=== PATIENT | male | born 1960 | race Caucasian/White ===

== ENCOUNTER 2023-02-14 09:12 | Outpatient (CLI) | payer OTHER, SELFPAY ==
[2023-02-14 18:37] LABS: Hematocrit 39.2 % (42.0-52.0); Mean Corpuscular HGB Conc 30.6 g/dl (32-36); Mean Corpuscular Hemoglobin 28.4 pg (26-34); Mean Corpuscular Volume 92.9 fl (80-100); Mean Platelet Volume 11.3 fl (7.4-10.4); Platelet Count Result 297 k/mm3 (150-375); Red Blood Count 4.22 M/mm3 (4.6-6.20); Red Cell Distribution Width 13.2 % (11.5-14.5); White Blood Count 6.2 K/mm3 (4.5-10.0)
== END 2023-02-14 09:13 | disposition home or self-care (01) ==
LOC: ANHBWCLAB 09:16
PROVIDERS: PCP Family Medicine; Visit Provider Family Medicine
DX: D64.9 Anemia, unspecified (principal); R73.03 Prediabetes; Z12.11 Encounter for screening for malignant neoplasm of colon
CPT/HCPCS: 36415; 85027

== ENCOUNTER 2023-02-16 14:47 | Outpatient (CLI) | payer OTHER, SELFPAY ==
[2023-02-16 19:19] LABS: IFOB Positive Control Positive; Immunochemical Fecal Occult Bl Negative (N)
== END 2023-02-16 14:48 | disposition home or self-care (01) ==
PROVIDERS: PCP Family Medicine; Visit Provider Family Medicine
DX: D64.9 Anemia, unspecified (principal); R73.03 Prediabetes; Z12.11 Encounter for screening for malignant neoplasm of colon
CPT/HCPCS: 82274

== ENCOUNTER 2024-06-21 14:58 | Outpatient (CLI) | payer OTHER, SELFPAY ==
[2024-06-21 21:34] LABS: Hemoglobin A1C 6.5 % (<5.7)
== END 2024-06-21 14:59 | disposition home or self-care (01) ==
LOC: ANHBWCLAB 15:00
PROVIDERS: PCP Nurse Practitioner Adult Health; Visit Provider Nurse Practitioner Adult Health
DX: R73.03 Prediabetes (principal)
CPT/HCPCS: 36415; 83036

== ENCOUNTER 2024-06-25 15:49 | Outpatient (CLI) | payer OTHER, SELFPAY ==
[2024-06-25 23:31] LABS: Prostate Specific Antigen 0.8 ng/mL (< OR = 4.0)
[2024-06-26 07:08] LABS: Iron 77 ug/dL (49-181)
[2024-06-26 07:18] LABS: Percent Iron Saturation 25 % (20-50)
== END 2024-06-25 15:50 | disposition home or self-care (01) ==
LOC: ANHBWCLAB 15:50
PROVIDERS: PCP Nurse Practitioner Adult Health; Visit Provider Nurse Practitioner Adult Health
DX: D64.9 Anemia, unspecified (principal); Z12.5 Encounter for screening for malignant neoplasm of prostate
CPT/HCPCS: 36415; 82728; 83540; 83550; 84153; G0103

== ENCOUNTER 2024-12-25 15:43 | Outpatient (CLI) | payer OTHER, SELFPAY ==
--- NOTE | ~2024-12-25 | XR_ITS ---
EXAM: XR knee LT 3V DATE: 12/25/2024 16:07 HISTORY: M25.562 - Pain in left knee . COMPARISON: None available. FINDINGS: Normal mineralization. No acute fracture or dislocation. Partially visualized intramedulla ry tete with distal interlocking screws. Status post total knee arthroplasty, hardware in good positio n. 4 mm perihardware lucency adjacent to the lateral condylar portion of the femoral component. Uncom plicated appearing tibial component. Moderate knee joint effusion. IMPRESSION: Perihardware lucency at the femoral component of the total knee arthroplasty, may represe nt loosening or infection. Reviewed, dictated and finalized at location K. IMPRESSION: Perihardware lucency at the femoral component of the total knee art hroplasty, may represent loosening or infection.
--- OUTSIDE RECORDS SUMMARY | 2024-12-25 15:47 | XMS_ITS | Clinical Summary ---
Author Organization [facility] Address [address] [place] [address] Care Team Providers Care Insurance Verify Rep Name Role Phone Scotty Gilliam MD Primary Care Provider [phone] [phone] Allergies No known active allergies Medications lisinopriL (PRINIVIL,ZESTRI L) 20 mg tablet Take 1 tablet (20 mg total) by mouth every morning Active tamsulosin (FLOMAX) 0.4 mg extended release capsule Take 2 capsules (0.8 mg total) by mouth nightly Active hydroCHLOROthiaz alex (MICROZIDE) 12.5 mg capsule Take 1 capsule (12.5 mg total) by mouth every morning Active cyanocobalamin, vitamin B-12, 5,000 mcg tablet, sublingual Place 5,000 mcg under the tongue every morning Active cholecalciferol 25 mcg (1,000 unit) tablet Take 1 tablet (1,000 Units total) by mouth 2 (two) times a week Active aspirin 81 mg enteric coated tablet Take 1 tablet (81 mg total) by mouth 2 (two) times a day for 14 days For blood clot prevention. Take with food. 28 tablet 3 Active fluticasone propionate (FLONASE) 50 mcg/actuation nasal sprayIndications :Allergic rhinitis, unspecified seasonality, unspecified trigger Administer 2 sprays into each nostril daily 3 each 4 Active meclizine (ANTIVERT) 12.5 mg tabletIndication s:Dizziness Take 1 tablet (12.5 mg total) by mouth 3 (three) times a day as needed for dizziness 90 tablet 4 Active triamcinolone (KENALOG) 0.1 % creamIndications :Insect bite of left thigh, initial encounter Apply topically 3 (three) times a day for 10 days 80 g 4 Active Active Problems Problem Noted Date Diagnosed Date Painful orthopaedic hardware 05/05/2023 Chronic nonallergic rhinitis 07/05/2022 COVID 03/17/2022 Closed fracture of femur 03/17/2022 Overview (03/17/2022): Added automatically from request for surgery [id number] Acute pain due to trauma 03/17/2022 Class 2 severe obesity due t o excess calories with serious comorbidity and body mass index (BMI) of 36.0 to 36.9 in adult 03/26/2021 Primary osteoarthritis of left knee 01/07/2021 Assessment & Plan (04/21/2021 4:15 PM CDT): Stable, not well controlled Patient scheduled for surgery in April Will conclude pre-surgical evaluation today Benign prostatic hyperplasia with urinary freque ncy 07/13/2019 Assessment & Plan (04/21/2021 4:16 PM CDT): Stable, well controlled Symptoms are controlled with tamsulosin 0.4 mg Continue current dose HTN (hypertension) 06/06/2019 Assessment & Plan (04/21/2021 4:16 PM CDT): Stable, well controlled; blood pressure at target today Continue senna oral 20 mg daily 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 [address] [place] [phone] Osmel Ram MD from Last 3 Months Immunizations Immunization Administration Dates Next Due Tdap 11/12/2013 ZOSTER Recombinant 10/04/2019,08/03/2019 Surgical History Surgery Date Site/Laterality Comments TOTAL KNEE ARTHROPLASTY 04/22/2021 Left FEMUR LUIS NAIL INSERTION 03/18/2022 Left Medical History Medical History Date Comments Hypertension Torn meniscus 04/2016 Family History Medical History Relation Name Comments Diabetes Father Diabetes mellit us; Eye Disease Father Heart disease Father Hypertension Father Hypertension; Other Father Alive and well; Stroke Father Stroke; Other Mother Alive and well; Thyroid disease Mother Diabetes Sister Hypertension Sister Thyroid disease Sister Anesthesia problems Neg Hx Relation Name Status Comments Father Alive Mother Alive Sister Alive Social History Tobacco Use Types Packs/Day Years Used Date Smoking Tobacco: Never Smokeless Tobacco: Never Tobacco Cessation:Counseling Given: Not Answered Alcohol Use Standard Drinks/Week Comments No 0 (1 standard drink = 0.6 oz pur e alcohol) AUDIT-C Answer Date Recorded Frequency of Alcohol Consumption Not on file 05/06/2023 Q2: How many drinks containi ng alcohol do you have on a typical day when you are drinking? Patient does not drink Frequency of Binge Drinking Not on file 04/09 PHQ-2 Answer Date Recorded PHQ-2 Total Score (If total score is 3 or more points, staff should administer the PHQ-9) 0 03/26/2021 Personal Safety Answer Date Recorded Have you ever been in or are you currently in a harmful physical or emotional relationship or is someone making you feel afraid or unsafe? 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 Gender Identity Not on file Sexual Orientation Not on file Obstetrics History Last Filed Vital Signs Vital Sign Reading Time Taken Comments Blood Pressure 136/64 04/26/2024 6:14 PM CDT Pulse 82 04/26/2024 6:14 PM CDT Temperature 36.6 C (97.8 F) 04/26/2024 6:14 PM CDT Respiratory Rate 18 04/26/2024 6:14 PM CDT Oxygen Saturation 97% 04/26/2024 6:14 PM CDT Inhaled Oxygen Concentration - - Weight 117.9 kg (260 lb) 04/26/2024 6:14 PM CDT Height 177.8 cm (5' 10 ) 04/26/2024 6:14 PM CDT Body Mass Index 37.31 04/26/2024 6:14 PM CDT Plan of Treatment Health Maintenance Due Date Last Done Comments Hepatitis C Screening 1962 Prostate Cancer Screening-PSA 1962 Hepatitis B Screening 1980 Regular Well Visit/Exam 18-64 1980 Depression Screening 03/26/2022 03/26/2021 Colon Cancer Screening-Colonoscopy 01/13/2023 01/14/2016 DTaP/Tdap/Td Vaccine (2 - Td or Tdap) 11/13/2023 11/12/2013 Covid-19 Vaccine (2 - season) 2024 11/13/2020 Influenza Vaccine (Season Ended) 2025 Colon Cancer Screening-CT Colonography Discontinued 01/14/2016 Colon Cancer Screening-DNA Stool Discontinued 01/14/2016 Colon Cancer Screening-FIT Discontinued 01/14/2016 Colon Cancer Screening-Sigmoidoscopy Discontinued 01/14/2016 Zoster Vaccine Completed 10/04/2019, 08/03/2019 Pneumococcal vaccine <65 Aged Out No longer eligible based on patient's age to complete this topic Medical Devices Implanted Type Area Property Administrator Device Identifier Shelf Expiration Date Model / Serial / Lot Depuy Orthopa[employer] Inc [id number] Attune Cruciate Retain Cementless Knee Left 7 Component Femoral - [id number] Implanted:Qty: 1 on 04/22/2021 by Osmel Ram MD at [facility] Left: Knee [employer]uy [employer] 08/07/2030 [id number] / / [id number] Depuy [employer] [id number] Attune Cementless Rotate Platform Knee 8 Baseplate Tibial - [id number] Implanted:Qty: 1 on 04/22/2021 by Osmel Ram MD at [facility] Left: Knee [employer] 08/07/2030 [id number] / / [id number] Dep[employer] [id number] Attune 10mm Cruciate Retaining Rotate Platform Knee 7 Insert - [id number] Implanted:Qty: 1 on 04/22/2021 by Osmel Ram MD at [facility] Left: Knee [employer] 02/04/2025 [id number] / / [id number] Synthes Screw Locking Threaded 5.0x90mm 04.045.090s - [id number] Implanted:Qty: 1 on 03/18/2022 by Emmanuelle Ba MD at [facility] Left: Femur Synthes I 04/07/2031 04.045.090S / / [id number] Synthes Nail Retrograde Fem 10mm 400mm 5 Deg Bend Titanium Sterile 04.233.040s - [id number] Implanted:Qty: 1 on 03/18/2022 by Emmanuelle Ba MD at [facility] Left: Femur Synthes I 10/05/2025 04.233.040S / / [id number] Screw Locking Im Nail 5mm 84mm - [id number] Implanted:Qty: 1 on 03/18/2022 by Emmanuelle Ba MD at [facility] Left: Femur Synthes I 04.045.084 / / Screw Locking Im Nail 5mm 36mm - [id number] Implanted:Qty: 2 on 03/18/2022 by Emmanuelle Ba MD at [facility] Left: Femur Synthes I 04.045.036 / / Explanted Type Area Property Administrator Device Identifier Shelf Expiration Date Model / Serial / Lot Synthes Screw Locking Im Nail 5mm 80mm 04.045.080 - [id number] Explanted:Qty: 1 on 03/18/2022 by Emmanuelle Ba MD at [facility] Left: Femur Synthes I 04.045.0 80 / / Synthes Screw Locking Im Nail 5mm 88mm 04.045.088 - [id number] Implanted:Qty: 1 on 03/18/2022 by Emmanuelle Ba MD at [facility] Explanted:Qty: 1 on 05/18/2023 by Arsalan Machado MD Left: Femur Synthes I 04.045.088 / / Synthes Screw Locking Im Nail 5mm 68mm 04.045.068 - [id number] Implanted:Qty: 1 on 03/18/2022 by Emmanuelle Ba MD at [facility] Explanted:Qty: 1 on 05/18/2023 by Arsalan Machado MD Left: Femur Synthes I 04.045.068 / / Procedures Procedure Name Priority Date/Time Associated Diagnosis Comments COLONOSCOPY Routine 01/14/2016 from Last 3 Months or Most Recently Relevant to Health Maintenance Results * Colonoscopy (01/14/2016) Anatomical Region Laterality Modality Other us Historical Provider ENDOSCOPY PROCEDURES Marycruz l Result from Last 3 Months or Most Recently Relevant to Health Maintenance Insurance [facility] [employer] [place] [facility] [employer] [employer] WORK[employer] COMPENSATION GENERIC WORKERS COMPENSATION GENERIC WORKERS COMPENSATION GENERIC WORKERS COMPENSATION GENERIC [employer] WORKERS COMPENSATION GENERIC WORKERS COMPENSATION GENERIC Advance Directives For more information, please contact: [phone] * Full Code (Latest Code Status on File) Date Activated Date Inactivated Comments 03/17/2022 7:38 PM 03/22/2022 8:13 PM Care Teams Insurance Verify Rep Relationship Specialty Start Date End Date Scotty Gilliam MD PCP - General Family Practice 10/23/23
--- OUTSIDE RECORDS SUMMARY | 2024-12-25 15:47 | XMS_ITS | Referral Summary ---
Author Organization [facility] [place] [facility] Address [address] [place] [address] Care Team Providers Care Principal Cloud Architect Name Role Phone Scotty Gilliam MD Primary Care Provider [phone] [phone] Encounters Date Type Department Care Team Description 12/03/2024 Telephone [facility] Medical Group Orthopedics and Sports Medicine [address] [place] [phone] Osmel Ram MD from Last 3 Months Allergies No known active allergies Medications lisinopriL [...] (03/17/2022): Added automatically from request for surgery [id number] Acute pain due to trauma 03/17/2022 Class [...] 12/22/2013 Overview (11/11/2016): BENIGN NEOPLASM LG BOWEL Immunizations Immunization Administration Dates Next Due Tdap 11/12/2013 ZOSTER Recombinant 10/04/2019,08/03/2019 Social History Tobacco Use Types Packs/Day Years [...] on file 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 Gender Identity Not on file Sexual Orientation Not on file Last Filed Vital Signs Vital Sign Reading [...] 04/26/2024 6:14 PM CDT Plan of Treatment Not on file Medical Devices Implanted Type Area Supervisor Payroll Device Identifier Shelf Expiration Date Model / Serial / Lot Depuy [employer] [id number] Attune Cruciate Retain Cementless Knee Left 7 Component Femoral - [id number] Implanted:Qty: 1 on 04/22/2021 by Osmel Ram MD at [facility] Left: Knee [employer] 08/07/2030 [id number] / / [id number] [employer] [id number] Attune Cementless Rotate Platform Knee 8 Baseplate Tibial - [id number] Implanted:Qty: 1 on 04/22/2021 by Osmel Ram MD at [facility] Left: Knee [employer] 08/07/2030 [id number] / / [id number] Dep[employer] [id number] Attune 10mm Cruciate Retaining Rotate Platform Knee 7 Insert - [id number] Implanted:Qty: 1 on 04/22/2021 by Osmel Ram MD at [facility] Left: Knee [employer] 02/04/2025 [id number] / / [id number] Synthes Screw Locking Threaded 5.0x90mm 04.045.090s - [id number] Implanted:Qty: 1 on 03/18/2022 by Emmanuelle Ba MD at [facility] Left: Femur Synthes I 04/07/2031 04.045.090S / / [id number] Synthes Nail Retrograde Fem 10mm 400mm 5 Deg Bend Titanium Sterile 04.233.040s - [id number] Implanted:Qty: 1 on 03/18/2022 by Emmanuelle Ba MD at [facility] Left: Femur Synthes I 10/05/2025 04.233.040S / / [id number] Screw Locking Im Nail 5mm 84mm - [id number] Implanted:Qty: 1 on 03/18/2022 by Emmanuelle Ba MD at [facility] Left: Femur Synthes I 04.045.084 / / Screw Locking Im Nail 5mm 36mm - [id number] Implanted:Qty: 2 on 03/18/2022 by Emmanuelle Ba MD at [facility] Left: Femur Synthes I 04.045.036 / / Explanted Type Area Supervisor Payroll Device Identifier Shelf Expiration Date Model / Serial / Lot Synthes Screw Locking Im Nail 5mm 80mm 04.045.080 - [id number] Explanted:Qty: 1 on 03/18/2022 by Emmanuelle Ba MD at [facility] Left: Femur Synthes I 04.045.0 80 / / Synthes Screw Locking Im Nail 5mm 88mm 04.045.088 - [id number] Implanted:Qty: 1 on 03/18/2022 by Emmanuelle Ba MD at [facility] Explanted:Qty: 1 on 05/18/2023 by Arsalan Machado MD Left: Femur Synthes I / / Synthes Screw Locking Im Nail 5mm 68mm - [id number] Implanted:Qty: 1 on 03/18/2022 by Emmanuelle Ba MD at [facility] Explanted:Qty: 1 on 05/18/2023 by Arsalan Machado MD Left: Femur Synthes I / / Procedures Procedure Name Priority Date/Time Associated Diagnosis Comments COLONOSCOPY Routine 01/14/2016 from Last 3 Months or Most Recently Relevant to Health Maintenance Results * Colonoscopy (01/14/2016) Anatomical Region Laterality Modality Other us Historical Provider ENDOSCOPY PROCEDURES Marycruz l Result from Last 3 Months or Most Recently Relevant to Health Maintenance Insurance [employer] WORKERS COMPENSATION GENERIC WORKERS COMPENSATION GENERIC WORKERS COMPENSATION GENERIC WORKERS COMPENSATION GENERIC [employer] WORKERS COMPENSATION [facility] WORKERS COMPENSATION GENERIC Advance Directives For more information, please contact: [phone] * Full Code (Latest Code Status on File) Date Activated Date Inactivated Comments 03/17/2022 7:38 PM 03/22/2022 8:13 PM Care Teams Principal Cloud Architect Relationship Specialty Start Date End Date Scotty Gilliam MD PCP - General Family Practice 10/23/23
--- OUTSIDE RECORDS SUMMARY | 2024-12-25 15:47 | XMS_ITS | Clinical Summary ---
Author Organization [facility] [employer] [place] Address [address] [place] [address] Care Team Providers Care Laboratory Apparatus Glass Grinder Name Role Phone Scotty Gilliam MD Primary Care Provider [phone] [phone] Allergies No known active allergies Medications tamsulosin (FLOMAX) 0.4 mg capsule Take 1 Capsule (0.4 mg) by mouth daily. 90 Capsule 3 2 Active acetaminophen (TYLENOL) 500 mg Capsule Take 1,000 mg by mouth. 2 Active cholecalciferol , vitamin D3, 1,000 unit Take 1,000 Units by mouth. Active cyanocobalamin (VITAMIN B-12) 5,000 mcg Tablet, Sublingual Place 5,000 mcg under tongue. Active traMADoL (ULTRAM) 50 mg tablet Take 50 mg by mouth every 6 hours as needed. 4 Active meclizine (ANTIVERT) 12.5 mg tablet Take 12.5 mg by mouth 3 times daily as needed for Dizziness. 4 Active montelukast (SINGULAIR) 10 mg tablet Take 10 mg by mouth daily at bedtime. Active aspirin (ECOTRIN EC) 81 mg Tablet, Delayed Release (E.C.)Indicatio ns:TIA (transient ischemic attack) Take 1 Tablet (81 mg) by mouth daily. 4 Active fexofenadine (BREANNE) 180 mg tabletIndicatio ns:Acute cough Take 1 Tablet (180 mg) by mouth daily. For allergies 90 Tablet 4 Active amoxicillin-cla vulanate (AUGMENTIN) 875-125 mg tabletIndicatio ns:Acute recurrent maxillary sinusitis Take 1 Tablet by mouth every 12 hours. 20 Tablet 4 Active doxycycline hyclate (VIBRAMYCIN) 100 mg capsuleIndicati ons:Acute recurrent sinusitis, unspecified location Take 1 Capsule (100 mg) by mouth 2 times daily. 20 Capsule 4 Active fluticasone propionate (FLONASE) 50 mcg/spray Mccamey, Suspension nasal inhalerIndicati ons:Acute non-recurrent maxillary sinusitis,Acute cough Administer 2 Sprays in each nostril daily. 16 Gram 4 Active lisinopriL (PRINIVIL) 20 mg tabletIndicatio ns:HTN (hypertension), benign Take 1 Tablet (20 mg) by mouth daily. 90 Tablet 5 Active hydroCHLOROthia zide (MICROZIDE) 12.5 mg capsuleIndicati ons:HTN (hypertension), benign Take 1 Capsule (12.5 mg) by mouth daily. 90 Capsule 5 Active lisinopriL (PRINIVIL) 20 mg tabletIndicatio ns:HTN (hypertension), benign Take 1 Tablet (20 mg) by mouth daily. 90 Tablet 5 12/18/19 25 Discontin ued(Reord er) hydroCHLOROthia zide (MICROZIDE) 12.5 mg capsuleIndicati ons:HTN (hypertension), benign Take 1 Capsule (12.5 mg) by mouth daily. 90 Capsule 5 12/18/19 25 Discontin ued(Reord er) Active Problems Problem Noted Date Diagnosed Date Low hemoglobin 06/14/2024 TIA (transient ischemic attack) 02/28/2024 Overview (04/05/2024): December 2023. Negative CT head. Pt did not complete MRI brain ordered. Prediabetes 01/09/2024 Chronic nonallergic rhinitis 07/05/2022 Closed fracture of femur 03/17/2022 Overview (04/28/2022): Added automatically from request for surgery [id number] Severe obesity (BMI 35.0-39.9) with comorbidity 02/29/2020 Primary osteoarthritis of left knee 08/03/2019 Overview (04/28/2022): Last Assessment & Plan: Stable, not well controlled Patient scheduled for surgery in April Will conclude pre-surgical evaluation today Benign prostatic hyperplasia with urinary freque ncy 07/13/2019 Overview (04/28/2022): Last Assessment & Plan: Stable, well controlled Symptoms are controlled with tamsulosin 0.4 mg Continue current dose HTN (hypertension) 06/06/2019 Overview (04/28/2022): Last Assessment & Plan: Stable, well controlled; blood pressure at target today Continue senna oral 20 mg daily Chronic back pain 06/05/2019 Resolved Problems Problem Noted Date Diagnosed Date Resolved Date Acute pain due to trauma 03/17/2022 COVID 03/17/2022 04/05/2024 Frequent urination at night 06/06/2019 07/13/2019 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 04/05/2024 Overview (04/28/2022): BENIGN NEOPLASM LG BOWEL Encounters Date Type Department Care Team Description 12/17/2024 2:00 PM CDT Procedure visit [facility] [place] at [facility] [employer] [place] [address] [place] [id number] Issue of repeat prescription (Primary Dx) 12/17/2024 Refill [facility] [place] at [facility] [employer] [place] [address] [place] [phone] Jodi Mancilla, CARY HTN (hypertension), benign 11/20/2024 External Device Data ST[place] ABSTRACTION Provider, Abstract 10/24/2024 External Device Data [place] ABSTRACTION Provider, Abstract 10/16/2024 External Device Data [place] ABSTRACTION Provider, Abstract 10/16/2024 External Device Data [place] ABSTRACTION Provider, Abstract 10/13/2024 External Device Data [place] ABSTRACTION Provider, Abstract 10/12/2024 External Device Data [place] ABSTRACTION Provider, Abstract from Last 3 Months Immunizations Immunization Administration Dates Next Due (ADACEL/BOOSTRIX)(10 YR UP) TDAP VACCINE, 0.5ML, IM 11/12/2013 (SHINGRIX)(50 YRS UP) ZOSTER VACCINE RECOMBINANT, 0.5 ML, IM 10/04/2019,08/03/2019 Family History Medical History Relation Name Comments No Known Problems Daughter Diabetes Father Hypertension Father Diabetes Maternal Grandfather Diabetes Maternal Grandmother Hypertension Mother Sudden Paternal Grandfather Heart Attack Paternal Grandmother No Known Problems Sister Crohn's Disease Son Relation Name Status Comments Daughter Alive Father Alive Maternal Grandfather Maternal Grandmother Mother Alive Paternal Grandfather Paternal Grandmother Sister Alive Son Alive Social History Tobacco Use Types Packs/Day Years Used Date Smoking Tobacco: Never Smokeless Tobacco: Never Tobacco Cessation:Counseling Given: Not Answered Alcohol Use Standard Drinks/Week Comments No 0 (1 standard drink = 0.6 oz pur e alcohol) Sex and Gender Information Value Date Recorded Sex Assigned at Not on file Legal Sex Male 3:46 PM CDT Gender Identity Not on file Sexual Orientation Not on file Last Filed Vital Signs Vital Sign Reading Time Taken Comments Blood Pressure 128/72 09/14/2024 9:19 AM MACHINE INSPECTOR Pulse 73 07/13/2024 10:26 AM MACHINE INSPECTOR Temperature 35.7 C (96.2 F) 07/13/2024 10:26 AM MACHINE INSPECTOR Respiratory Rate 17 07/13/2024 10:26 AM MACHINE INSPECTOR Oxygen Saturation 97% 07/13/2024 10:26 AM MACHINE INSPECTOR Inhaled Oxygen Concentration - - Weight 121.1 kg (267 lb) 09/14/2024 9:19 AM MACHINE INSPECTOR Height 177.8 cm (5' 10 ) 09/14/2024 9:19 AM MACHINE INSPECTOR Body Mass Index 38.31 09/14/2024 9:19 AM MACHINE INSPECTOR Plan of Treatment Upcoming Encounters Date Type Department Care Team (Late st Contact Info) Description 01/07/2025 2:30 PM CDT Office Visit [facility] [place] at Work [employer] [place] [address] [place] [address] Kelly Ruiz, ANP [address] [facility] [address] [place] [phone] Health Maintenance Due Date Last Done Comments FIT-DNA Q 3 years 2007 FIT/FOBT Q 1 year 2007 Flex Sig/CT Colonography Q 5 years 2007 RSV VACCINE (60+ or ) (1 - Risk 60-74 years 1-dose series) 2022 DTAP/TDAP/TD VACCINES (2 - T d or Tdap) 11/13/2023 11/12/2013 INFLUENZA VACCINE (#1) 2024 10/27/2021 Pre-Diabetes and Diabetes Screening 08/18/2026 08/18/2023, 12/28/2022, 02/12/2022, Additional history exists COLORECTAL SCREENING 01/06/2027 01/06/2017 (Previously completed), 01/14/2016, 01/14/2016 (Previously completed) Colorectal Cancer Screening 01/06/2027 ZOSTER VACCINE Completed 10/04/2019, 08/03/2019 Procedures Procedure Name Priority Date/Time Associated Diagnosis Comments HEMOGLOBIN A1C Routine 08/18/2023 7:11 AM MACHINE INSPECTOR Hypertension, unspecified type from Last 3 Months or Most Recently Relevant to Health Maintenance Results * (ABNORMAL) HEMOGLOBIN A1C (08/18/2023 7:11 AM MACHINE INSPECTOR) HEMOGLOBIN A1C 6.2(H) <5.7 % of total Hgb [facility] Comment: For someone without known diabetes, a hemoglobin A1c value between 5.7% and 6.4% is consistent with prediabetes and should be confirmed with a follow-up test. For someone with known diabetes, a value <7% indicates that their diabetes is well controlled. A1c targets should be individualized based on duration of diabetes, age, comorbid conditions, and other considerations. This assay result is consistent with an increased risk of diabetes. Currently, no consensus exists regarding use of hemoglobin A1c for diagnosis of diabetes for children. ESTIMATED AVERAGE GLUCOSE (MG/DL) 131 mg/dL [facility] ESTIMATED AVERAGE GLUCOSE (MMOL/L) 7.3 mmol/L [facility] Comment: HbA1c performed on [employer] platform. Test Performed at: [facility] [address] [phone] Lucinda Perez MD Blood 08/18/2023 7:11 AM MACHINE INSPECTOR 08/19/2023 1:08 PM MACHINE INSPECTOR Beatriz Durant MD CHEMISTRY ORDERABLES Final Re sult [facility] [phone] [facility] [address] [phone] from Last 3 Months or Most Recently Relevant to Health Maintenance Insurance [employer] OPEN ACCESS * Guarantor: [employer] Account Type Relation to Patient Date of Phone Billing Address Corporate Employer ATTN: JACK BRUCE [address] [address] Care Teams Laboratory Apparatus Glass Grinder Relationship Specialty Start Date End Date Scotty Gilliam MD PCP - General Family Practice 08/24/22
== END 2024-12-25 15:44 | disposition home or self-care (01) ==
PROVIDERS: PCP Nurse Practitioner Adult Health; Visit Provider Nurse Practitioner Adult Health
DX: M25.562 Pain in left knee (principal)
CPT/HCPCS: 73562

== ENCOUNTER 2025-01-02 06:31 | Outpatient (CLI) | payer OTHER, SELFPAY ==
--- OUTSIDE RECORDS SUMMARY | 2025-01-02 06:35 | XMS_ITS | Referral Summary ---
Author Organization [facility] 163 [facility] Address [address] [place] [address] Care Team Providers Care Enamel Shader Name Role Phone Scotty Gilliam MD Primary Care Provider +1 [phone] Encounters Date Type Department Care Team Description 12/28/2024 Telephone [facility] [address] [facility] Advanced Medicine 6th [place] [address] [place] [address] Bethanie Myers RMA 12/26/2024 Telephone [facility] [address] [facility] Medicine 6th [place] [address] [place] [address] Sejal Hall MS 12/03/2024 Telephone [facility] Orthopedics and Sports Medicine [address] [place] [address] [address] [address] Osmel Ram MD from Last 3 [...] (03/17/2022): Added automatically from request for surgery [id number] Acute pain due to trauma 03/17/2022 Class [...] on file 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 Gender Identity Not on file Sexual Orientation [...] 6:14 PM CDT Height 177.8 cm (5' 10) 04/26/2024 6:14 PM CDT Body Mass Index 37.31 04/26/2024 6:14 PM CDT Plan of Treatment Not on file Medical Devices Implanted Type Area Extraction Machine Operator Device Identifier Shelf Expiration Date Model / Serial / Lot DepGroupe Athena Orthopaedics Inc [id number] Attune Cruciate Retain Cementless Knee Left 7 Component Femoral - [id number] Implanted:Qty: 1 on 04/22/2021 by Osmel Ram MD at [facility] Left: Knee Depuy Orthopaedics Inc 08/07/2030 [id number] / / [id number] Depuy Orthopaedics Inc [id number] Attune Cementless Rotate Platform Knee 8 Baseplate Tibial - [id number] Implanted:Qty: 1 on 04/22/2021 by Osmel Ram MD at [facility] Left: Knee Depuy Orthopaedics Inc 08/07/2030 [id number] / / [id number] Depuy Orthopaedics Inc [id number] Attune 10mm Cruciate Retaining Rotate Platform Knee 7 Insert - [id number] Implanted:Qty: 1 on 04/22/2021 by Osmel Ram MD at [facility] Left: Knee Depuy Orthopaedics Inc 02/04/2025 [id number] / / [id number] Synthes Screw Locking Threaded 5.0x90mm 04.045.090s - [id number] Implanted:Qty: 1 on 03/18/2022 by Emmanuelle Ba MD at [facility] Left: Femur Synthes I 04/07/2031 04.045.090S / / [id number] Synthes Nail Retrograde Fem 10mm 400mm 5 Deg Bend Titanium Sterile 04.233.040s - [id number] Implanted:Qty: 1 on 03/18/2022 by Emmanuelle Ba MD at [facility] Left: Femur Synthes I 10/05/2025 04.233.040S / / [id number] Screw Locking Im Nail 5mm 84mm - [id number] Implanted:Qty: 1 on 03/18/2022 by Emmanuelle Ba MD at [facility] Left: Femur Synthes I 04.045.084 / / Screw Locking Im Nail 5mm 36mm - [id number] Implanted:Qty: 2 on 03/18/2022 by Emmanuelle Ba MD at [facility] Left: Femur Synthes I 04.045.036 / / Explanted Type Area Extraction Machine Operator Device Identifier Shelf Expiration Date Model / Serial / Lot Synthes Screw Locking Im Nail 5mm 80mm 04.045.080 - [id number] Explanted:Qty: 1 on 03/18/2022 by Emmanuelle Ba MD at [facility] Left: Femur Synthes I 04.045.0 80 / / Synthes Screw Locking Im Nail 5mm 88mm 04.045.088 - [id number] Implanted:Qty: 1 on 03/18/2022 by Emmanuelle Ba MD at [facility] Explanted:Qty: 1 on 05/18/2023 by Arsalan Machado MD Left: Femur Synthes I 04.045.088 / / Synthes Screw Locking Im Nail 5mm 68mm 04.045.068 - [id number] Implanted:Qty: 1 on 03/18/2022 by Emmanuelle Ba MD at [facility] Explanted:Qty: 1 on 05/18/2023 by Arsalan Machado [...] Most Recently Relevant to Health Maintenance [facility] Member Subscriber Plan / Payer (Ef fective 2021-Present) Name:Lev Ford Relation to Subscriber:Self Name:Lev Ford Payer ID:[id number] (NAIC) Type:ANITA HMO/PPO Address: [place] [id number] ROCKY CHOW WORKERS COMPENSATION GENERIC Member Subscriber Plan / Payer (Ef fective 2022-Present) Name:Lev Ford Relation to Subscriber:Employee Name:[employer] (Home) Address: [address] [address] Payer ID:[id number] Type:WORKERS COMPENSATION Address: [address] [place] [id number] WORKERS COMPENSATION GENERIC WORKERS COMPENSATION GENERIC WORKERS COMPENSATION GENERIC ROCKY MELTONETT WORKERS COMPENSATION GENERIC WORKERS COMPENSATION GENERIC Advance Directives For more information, please contact: [phone] * Full Code (Latest Code Status on File) Date Activated Date Inactivated Comments 03/17/2022 7:38 PM 03/22/2022 8:13 PM Care Teams Enamel Shader Relationship Specialty Start Date End Date Scotty Gilliam MD PCP - General Family Practice 10/23/23
--- OUTSIDE RECORDS SUMMARY | 2025-01-02 06:35 | XMS_ITS | Clinical Summary ---
Author Organization [facility] 163 [facility] Address [address] [place] [address] Care Team Providers Care Icu Nurse Name Role Phone Scotty Gilliam MD Primary Care Provider +1 [phone] Allergies No known active allergies Medications lisinopriL [...] (03/17/2022): Added automatically from request for surgery [id number] Acute pain due to trauma 03/17/2022 Class [...] Type Department Care Team Description 12/28/2024 Telephone [facility] Orthopaedic Surgery [address] [facility] Advanced Medicine 6th [place] [address] [place] [address] Bethanie Myers RMA 12/26/2024 Telephone [facility] Orthopaedic Surgery [address] [facility] Advanced Medicine 6th [place] [address] [place] [address] Sejal Hall MS 12/03/2024 Telephone [facility] Orthopedics and Sports Medicine [address] [place] [address] Osmel Ram MD from Last [...] on file 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 Gender Identity Not on file Sexual Orientation [...] Td or Tdap) 11/13/2023 11/12/2013 Covid-19 Vaccine ( - season) 2024 11/13/2020 Influenza Vaccine (Season Ended) 2025 Colon Cancer Screening-CT Colonography Discontinued 01/14/2016 Colon Cancer Screening-DNA Stool Discontinued 01/14/2016 Colon Cancer Screening-FIT Discontinued 01/14/2016 Colon Cancer Screening-Sigmoidoscopy Discontinued 01/14/2016 Zoster Vaccine Completed 10/04/2019, 08/03/2019 Pneumococcal vaccine <65 Aged Out No longer eligible based on patient's age to complete this topic Medical Devices Implanted Type Area International Editorial Producer Device Identifier Shelf Expiration Date Model / Serial / Lot Depuy Orthopaedics Inc [id number] Attune Cruciate Retain Cementless Knee Left 7 Component Femoral - [id number] Implanted:Qty: 1 on 04/22/2021 by Osmel Ram MD at [facility] Left: Knee Depuy Orthopaedics Inc 08/07/2030 [id number] / / [id number] Depuy Orthopaedics Inc [id number] Attune Cementless Rotate Platform Knee 8 Baseplate Tibial - [id number] Implanted:Qty: 1 on 04/22/2021 by Osmel Ram MD at [facility] Left: Knee Depuy Orthopaedics Inc 08/07/2030 [id number] / / [id number] Depuy Orthopaedics Inc [id number] Attune 10mm Cruciate Retaining Rotate Platform Knee 7 Insert - [id number] Implanted:Qty: 1 on 04/22/2021 by Osmel Ram MD at [facility] Left: Knee [employer]uy Orthopaedics Inc 02/04/2025 [id number] / / [id number] Synthes Screw Locking Threaded 5.0x90mm 04.045.090s - [id number] Implanted:Qty: 1 on 03/18/2022 by Emmanuelle Ba MD at [facility] Left: Femur Synthes I 04/07/2031 04.045.090S / / [id number] Synthes Nail Retrograde Fem 10mm 400mm 5 Deg Bend Titanium Sterile 04.233.040s - [id number] Implanted:Qty: 1 on 03/18/2022 by Emmanuelle Ba MD at [facility] Left: Femur Synthes I 10/05/2025 04.233.040S / / [id number] Screw Locking Im Nail 5mm 84mm - [id number] Implanted:Qty: 1 on 03/18/2022 by Emmanuelle Ba MD at [facility] Left: Femur Synthes I 04.045.084 / / Screw Locking Im Nail 5mm 36mm - [id number] Implanted:Qty: 2 on 03/18/2022 by Emmanuelle Ba MD at [facility] Left: Femur Synthes I 04.045.036 / / Explanted Type Area International Editorial Producer Device Identifier Shelf Expiration Date Model / Serial / Lot Synthes Screw Locking Im Nail 5mm 80mm 04.045.080 - [id number] Explanted:Qty: 1 on 03/18/2022 by Emmanuelle Ba MD at [facility] Left: Femur Synthes I 04.045.0 80 / / Synthes Screw Locking Im Nail 5mm 88mm 04.045.088 - [id number] Implanted:Qty: 1 on 03/18/2022 by Emmanuelle Ba MD at [facility] Explanted:Qty: 1 on 05/18/2023 by Arsalan Machado MD Left: Femur Synthes I 04.045.088 / / Synthes Screw Locking Im Nail 5mm 68mm 04.045.068 - [id number] Implanted:Qty: 1 on 03/18/2022 by Emmanuelle Ba MD at [facility] Explanted:Qty: 1 on 05/18/2023 by Arsalan [...] Most Recently Relevant to Health Maintenance Insurance [employer] Systems[employer]ANCE CIGNA ALLEGIANCE ROCKY CHOW WORKERS COMPENSATION GENERIC WORKERS COMPENSATION GENERIC WORKERS COMPENSATION GENERIC WORKERS COMPENSATION GENERIC ROCKY MELTONETT WORKERS COMPENSATION GENERIC WORKERS COMPENSATION GENERIC Advance Directives For more information, please contact: [phone] * Full Code (Latest Code Status on File) Date Activated Date Inactivated Comments 03/17/2022 7:38 PM 03/22/2022 8:13 PM Care Teams Icu Nurse Relationship Specialty Start Date End Date Scotty Gilliam MD PCP - General Family Practice 10/23/23
--- OUTSIDE RECORDS SUMMARY | 2025-01-02 06:35 | XMS_ITS | Clinical Summary ---
Author Organization [facility] [employer] [place] Address [address] [place] [address] Care Team Providers Care Quality Assurance Supervisor Name Role Phone Scotty Gilliam MD Primary Care Provider +1 [phone] Allergies No known active allergies Medications tamsulosin [...] 4 Active fluticasone propionate (FLONASE) 50 mcg/spray [place], Suspension nasal inhalerIndicati ons:Acute non-recurrent maxillary sinusitis,Acute [...] (04/28/2022): Added automatically from request for surgery [id number] Severe obesity (BMI 35.0-39.9) with comorbidity 02/29/2020 [...] Encounters Date Type Department Care Team Description 12/27/2024 External Device Data STL ABSTRACTION Provider, Abstract 12/26/2024 External Device Data STL ABSTRACTION Provider, Abstract 12/25/2024 External Device Data [place] ABSTRACTION Provider, Abstract 12/17/2024 2:00 PM CDT Procedure [facility] [employer] [place] [address] [place] [address] Issue of repeat prescription (Primary Dx) 12/17/[address] [facility] [address] [id number] Jodi Mancilla, CARY HTN (hypertension), benign 11/20/2024 [...] Comments Blood Pressure 128/72 09/14/2024 9:19 AM B AND B GANG WORKER Pulse 73 07/13/2024 10:26 AM B AND B GANG WORKER Temperature 35.7 C (96.2 F) 07/13/2024 10:26 AM B AND B GANG WORKER Respiratory Rate 17 07/13/2024 10:26 AM B AND B GANG WORKER Oxygen Saturation 97% 07/13/2024 10:26 AM B AND B GANG WORKER Inhaled Oxygen Concentration - - Weight 121.1 kg (267 lb) 09/14/2024 9:19 AM B AND B GANG WORKER Height 177.8 cm (5' 10) 09/14/2024 9:19 AM B AND B GANG WORKER Body Mass Index 38.31 09/14/2024 9:19 AM B AND B GANG WORKER Plan of Treatment Upcoming Encounters Date Type Department Care Team (Late st Contact Info) Description 01/07/2025 2:30 PM CDT Office [facility] [place] [address] [facility] [place] [address] Kelly Ruiz, ANP [address] [place] [address] Health Maintenance Due Date Last Done Comments [...] Comments HEMOGLOBIN A1C Routine 08/18/2023 7:11 AM B AND B GANG WORKER Hypertension, unspecified type from Last 3 Months or Most Recently Relevant to Health Maintenance Results * (ABNORMAL) HEMOGLOBIN A1C (08/18/2023 7:11 AM B AND B GANG WORKER) HEMOGLOBIN A1C 6.2(H) <5.7 % of total Hgb [facility] Comment: For someone without known diabetes, [...] ESTIMATED AVERAGE GLUCOSE (MG/DL) 131 mg/dL [facility] ESTIMATED AVERAGE GLUCOSE (MMOL/L) 7.3 mmol/L [facility] Comment: HbA1c performed on Pina platform. Test Performed at: [facility] [facility] [address] [address] Lucinda Perez MD Blood 08/18/2023 7:11 AM B AND B GANG WORKER 08/19/2023 1:08 PM B AND B GANG WORKER us Beatriz Durant MD CHEMISTRY ORDERABLES Final Re sult [facility] [phone] [facility] [place] [address] [address] from Last 3 Months or Most Recently Relevant to Health Maintenance Insurance [facility] OPEN ACCESS * Guarantor: OLD WORKFLOW[employer] Account Type Relation to Patient Date of Phone Billing Address Corporate Employer ATTN: JACK BRUCE [address] [address] Care Teams Quality Assurance Supervisor Relationship Specialty Start Date End Date Scotty Gilliam MD PCP - General Family Practice 08/24/22
[2025-01-02 19:33] LABS: Basophils Absolute Auto 0.1 K/mm3 (0.0-0.1); Basophils Percent Auto 0.7 % (0.2-1.2); Eosinophils Absolute Auto 0.2 K/mm3 (0-0.3); Eosinophils Percent Auto 2.1 % (0-4.4); Hematocrit 41.8 % (42.0-52.0); Hemoglobin 12.4 g/dL (14.0-18.0); Immature Granulocyte Absolute 0.03 K/mm3 (0.00-0.031); Immature Granulocyte Percent A 0.4 % (0-0.5); Lymphocytes Absolute Auto 1.16 K/mm3 (0.9-3.2); Lymphocytes Percent Auto 16.3 % (18.3-44.2); Mean Corpuscular HGB Conc 29.7 g/dl (32-36); Mean Corpuscular Hemoglobin 27.5 pg (26-34); Mean Corpuscular Volume 92.7 fl (80-100); Mean Platelet Volume 10.9 fl (7.4-10.4); Monocytes Absolute Auto 0.5 K/mm3 (0.1-0.6); Monocytes Percent Auto 7.3 % (2.6-8.5); Neutrophils Absolute Auto 5.2 K/mm3 (1.3-6.7); Neutrophils Percent Auto 73.2 % (45.5-73.1); Platelet Count Result 307 k/mm3 (150-375); Red Blood Count 4.51 M/mm3 (4.6-6.20); Red Cell Distribution Width 13.3 % (11.5-14.5); White Blood Count 7.1 K/mm3 (4.5-10.0)
[2025-01-02 19:44] LABS: Alanine Aminotransferase 31 U/L (6-50); Albumin Level 4.5 g/dL (3.5-5.1); Alkaline Phosphatase 78 U/L (38-126); Anion Gap 9 mmol/L (4-12); Aspartate Amino Transferase 52 U/L (17-59); Bilirubin,Total 0.4 mg/dL (0.2-1.3); Blood Urea Nitrogen 24 mg/dL (9-20); Calcium 10.5 mg/dL (8.4-10.2); Carbon Dioxide 28 mmol/L (22-30); Chloride 102 mmol/L (98-107); Cholesterol 199 mg/dL (0-200); Estimated Glomerular Filt Rate > 60; Glucose 129 mg/dL (65-110); HDL Direct 39 mg/dL; Sodium 139 mmol/L (137-145); Triglycerides 109 mg/dL (<150)
[2025-01-02 19:55] LABS: LDL Cholesterol Direct 106 mg/dL
[2025-01-02 20:14] LABS: Prostate Specific Antigen 0.9 ng/mL (< OR = 4.0)
[2025-01-02 20:21] LABS: Creatinine Urine 121.6 mg/dL
[2025-01-02 20:23] LABS: MALB Creatinine Ratio 13.2 mg/g (0-30)
[2025-01-02 20:27] LABS: Band Neutrophils Percent 0 % (0-6); Platelet Estimate Adequate (Adequate)
[2025-01-02 20:28] LABS: Hypochromasia 1+; Schistocytes None Seen
[2025-01-02 20:49] LABS: Hemoglobin A1C 6.3 % (<5.7)
== END 2025-01-02 06:32 | disposition home or self-care (01) ==
PROVIDERS: PCP Nurse Practitioner Adult Health; Visit Provider Nurse Practitioner Adult Health
DX: D64.9 Anemia, unspecified (principal); E11.9 Type 2 diabetes mellitus without complications; Z12.5 Encounter for screening for malignant neoplasm of prostate
CPT/HCPCS: 36415; 80053; 80061; 82043; 82565; 83036; 84153; 85025; G0103

== ENCOUNTER 2025-01-03 14:52 | Outpatient (CLI) | payer OTHER, SELFPAY ==
--- OUTSIDE RECORDS SUMMARY | 2025-01-03 14:54 | XMS_ITS | Clinical Summary ---
Author Organization [facility] 163 [facility] Address [address] [place] [address] Care Team Providers Care Casting Room Helper Name Role Phone Scotty Gilliam MD Primary Care Provider +1 -[phone] Allergies No known active allergies Medications lisinopriL [...] (03/17/2022): Added automatically from request for surgery [id number] Acute pain due to trauma 03/17/2022 Class [...] Type Department Care Team Description 12/28/2024 Telephone [facility] Orthopaedic Surgery [address] [facility] Advanced Medicine 6th [place] [address] [place] [address] Bethanie Myers RMA 12/26/2024 Telephone [facility] Orthopaedic Surgery [address] [facility] Advanced Medicine 6th [place] [address] [place] [address] Sejal Hall MS 12/03/[address] 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 Gender Identity Not on file Sexual [...] this topic Medical Devices Implanted Type Area Movers Device Identifier Shelf Expiration Date Model / Serial / Lot Depuy Orthopaedics Inc [id number] Attune Cruciate Retain Cementless Knee Left 7 Component Femoral - [id number] Implanted:Qty: 1 on 04/22/2021 by Osmel Ram MD at [facility] Left: Knee Depuy Orthopaedics Inc 08/07/2030 [id number] / / [id number] Depuy Orthopaedics Inc [id number] Attune Cementless Rotate Platform Knee 8 Baseplate Tibial - [id number] Implanted:Qty: 1 on 04/22/2021 by Osmel Ram MD at [facility] Left: Knee Depuy Orthopaedics Inc 08/07/2030 [id number] / / [id number] Depuy Orthopaedics Inc [id number] Attune 10mm Cruciate Retaining Rotate Platform Knee 7 Insert - [id number] Implanted:Qty: 1 on 04/22/2021 by Osmel Ram MD at [facility] Left: Knee Depuy Orthopaedics Inc 02/04/2025 [id number] / / [id number] Synthes Screw Locking Threaded 5.0x90mm 04.045.090s - [id number] Implanted:Qty: 1 on 03/18/2022 by Emmanuelle Ba MD at [facility] Left: Femur Synthes I 04/07/2031 04.045.090S / / [id number] Synthes Nail Retrograde Fem 10mm 400mm 5 Deg Bend Titanium Sterile 04.233.040s - [id number] Implanted:Qty: 1 on 03/18/2022 by Emmanuelle Ba MD at [facility] Left: Femur Synthes I 10/05/2025 04.233.040S / / [id number] Screw Locking Im Nail 5mm 84mm - [id number] Implanted:Qty: 1 on 03/18/2022 by Emmanuelle Ba MD at [facility] Left: Femur Synthes I 04.045.084 / / Screw Locking Im Nail 5mm 36mm - [id number] Implanted:Qty: 2 on 03/18/2022 by Emmanuelle Ba MD at [facility] Left: Femur Synthes I 04.045.036 / / Explanted Type Area Movers Device Identifier Shelf Expiration Date Model / Serial / Lot Synthes Screw Locking Im Nail 5mm 80mm 04.045.080 - [id number] Explanted:Qty: 1 on 03/18/2022 by Emmanuelle Ba MD at [facility] Left: Femur Synthes I 04.045.0 80 / / Synthes Screw Locking Im Nail 5mm 88mm 04.045.088 - [id number] Implanted:Qty: 1 on 03/18/2022 by Emmanuelle Ba MD at [facility] Explanted:Qty: 1 on 05/18/2023 by Arsalan Machado MD Left: Femur Synthes I 04.045.088 / / Synthes Screw Locking Im Nail 5mm 68mm 04.045.068 - [id number] Implanted:Qty: 1 on 03/18/2022 by Emmanuelle Ba MD at [facility] Explanted:Qty: 1 on 05/18/2023 by Arsalan Machado [...] Most Recently Relevant to Health Maintenance Insurance [employer] Market[employer] BuildDirectGIANCE CIGNA ALLEGIANCE ROCKY CHOW WORKERS COMPENSATION GENERIC WORKERS COMPENSATION GENERIC WORKERS COMPENSATION GENERIC WORKERS COMPENSATION GENERIC ROCKY MELTONETT WORKERS COMPENSATION GENERIC WORKERS COMPENSATION GENERIC Advance Directives For more information, please contact: [phone] * Full Code (Latest Code Status on File) Date Activated Date Inactivated Comments 03/17/2022 7:38 PM 03/22/2022 8:13 PM Care Teams Casting Room Helper Relationship Specialty Start Date End Date Scotty Gilliam MD PCP - General Family Practice 10/23/23
--- OUTSIDE RECORDS SUMMARY | 2025-01-03 14:54 | XMS_ITS | Clinical Summary ---
Author Organization [facility] [employer] [place] Address [address] [place] [address] Care Team Providers Care Pharmacy Data Analyst Name Role Phone Scotty Gilliam MD Primary Care Provider +1 -[phone] Allergies No known active allergies Medications tamsulosin [...] 4 Active fluticasone propionate (FLONASE) 50 mcg/spray [place], Suspension nasal inhalerIndicati ons:Acute non-recurrent maxillary sinusitis,Acute [...] (04/28/2022): Added automatically from request for surgery [id number] Severe obesity (BMI 35.0-39.9) with comorbidity 02/29/2020 [...] Abstract 12/17/2024 2:00 PM CDT Procedure visit [facility] [employer] [place] [address] [place] [address] Issue of repeat prescription (Primary Dx) 12/17/2024 Refill [facility] at [facility] [address] [place] [address] Jodi Mancilla, CARY HTN (hypertension), benign 11/20/2024 [...] Comments Blood Pressure 128/72 09/14/2024 9:19 AM SUPERVISOR ORDER TAKERS Pulse 73 07/13/2024 10:26 AM SUPERVISOR ORDER TAKERS Temperature 35.7 C (96.2 F) 07/13/2024 10:26 AM SUPERVISOR ORDER TAKERS Respiratory Rate 17 07/13/2024 10:26 AM SUPERVISOR ORDER TAKERS Oxygen Saturation 97% 07/13/2024 10:26 AM SUPERVISOR ORDER TAKERS Inhaled Oxygen Concentration - - Weight 121.1 kg (267 lb) 09/14/2024 9:19 AM SUPERVISOR ORDER TAKERS Height 177.8 cm (5' 10) 09/14/2024 9:19 AM SUPERVISOR ORDER TAKERS Body Mass Index 38.31 09/14/2024 9:19 AM SUPERVISOR ORDER TAKERS Plan of Treatment Upcoming Encounters Date Type Department Care Team (Late st Contact Info) Description 01/07/2025 2:30 PM CDT Office Visit [facility] [address] [facility] [facility] [place] [address] Kelly Ruiz, ANP [address] [place] [address] Health Maintenance Due Date Last [...] Comments HEMOGLOBIN A1C Routine 08/18/2023 7:11 AM SUPERVISOR ORDER TAKERS Hypertension, unspecified type from Last 3 Months or Most Recently Relevant to Health Maintenance Results * (ABNORMAL) HEMOGLOBIN A1C (08/18/2023 7:11 AM SUPERVISOR ORDER TAKERS) HEMOGLOBIN A1C 6.2(H) <5.7 % of total [...] performed on Pina platform. Test Performed at: [facility] [address] [address] Lucnida Perez MD Blood 08/18/2023 7:11 AM SUPERVISOR ORDER TAKERS 08/19/2023 1:08 PM SUPERVISOR ORDER TAKERS us Beatriz Durant MD CHEMISTRY ORDERABLES Final Re sult [facility] [phone] [facility] [employer] [address] [address] from Last 3 Months or Most Recently Relevant to Health Maintenance Insurance [facility] OPEN ACCESS * Guarantor: OLD WORKFLOW[employer] Account Type Relation to Patient Date of Phone Billing Address Corporate Employer ATTN: JACK BRUCE [address] [address] Care Teams Pharmacy Data Analyst Relationship Specialty Start Date End Date Scotty Gilliam MD PCP - General Family Practice 08/24/22
--- OUTSIDE RECORDS SUMMARY | 2025-01-03 14:54 | XMS_ITS | Referral Summary ---
Author Organization [facility] [place] [facility] Address [address] [place] [address] Care Team Providers Care Head Of Merchandise Buying Name Role Phone Scotty Gilliam MD Primary Care Provider [phone] Encounters Date Type Department Care Team Description 12/28/2024 Telephone [facility] Orthopaedic Surgery [address] [facility] Advanced Medicine 6th [place] [address] [place] [address] Bethanie Myers RMA 12/26/2024 Telephone [facility] Orthopaedic Surgery [address] [facility] Medicine 6th [place] [address] [place] [address] Sejal Hall MS 12/03/2024 Telephone [facility] Orthopedics and Sports Medicine [address] [place] [address] [address], [place] [address] Osmel Ram MD from Last [...] (03/17/2022): Added automatically from request for surgery [id number] Acute pain due to trauma 03/17/2022 Class [...] on file Legal Sex Male 2:25 PM [facility] Gender Identity Not on file Sexual Orientation [...] on file Medical Devices Implanted Type Area News Director Device Identifier Shelf Expiration Date Model / Serial / Lot DepGeneAssess Orthopaed[employer] Inc [id number] Attune Cruciate Retain Cementless Knee Left 7 Component Femoral - [id number] Implanted:Qty: 1 on 04/22/2021 by Osmel Ram MD at [facility] Left: Knee [employer] 08/07/2030 [id number] / / [id number] Dep[employer] [id number] Attune Cementless Rotate Platform Knee 8 Baseplate Tibial - [id number] Implanted:Qty: 1 on 04/22/2021 by Osmel Ram MD at [facility] Left: Knee [employer] 08/07/2030 [id number] / / [id number] Dep[employer] [id number] Attune 10mm Cruciate Retaining Rotate Platform Knee 7 Insert - [id number] Implanted:Qty: 1 on 04/22/2021 by Osmel Ram MD at [facility] Left: Knee [employer] 02/04/2025 [id number] / / [id number] Synthes Screw Locking Threaded 5.0x90mm 04.045.090s - [id number] Implanted:Qty: 1 on 03/18/2022 by Emmanuelle Ba MD at [facility] Left: Femur Synthes I 04/07/2031 04.045.090S / / [id number] Synthes Nail Retrograde Fem 10mm 400mm 5 Deg Bend Titanium Sterile 04.233.040s - [id number] Implanted:Qty: 1 on 03/18/2022 by Emmanuelle Ba MD at [facility] Left: Femur Synthes I 10/05/2025 04.233.040S / / [id number] Screw Locking Im Nail 5mm 84mm - [id number] Implanted:Qty: 1 on 03/18/2022 by Emmanuelle Ba MD at [facility] Left: Femur Synthes I 04.045.084 / / Screw Locking Im Nail 5mm 36mm - [id number] Implanted:Qty: 2 on 03/18/2022 by Emmanuelle Ba MD at [facility] Left: Femur Synthes I 04.045.036 / / Explanted Type Area News Director Device Identifier Shelf Expiration Date Model / Serial / Lot Synthes Screw Locking Im Nail 5mm 80mm 04.045.080 - [id number] Explanted:Qty: 1 on 03/18/2022 by Emmanuelle Ba MD at [facility] Left: Femur Synthes I 04.045.0 80 / / Synthes Screw Locking Im Nail 5mm 88mm 04.045.088 - [id number] Implanted:Qty: 1 on 03/18/2022 by Emmanuelel Ba MD at [facility] Explanted:Qty: 1 on 05/18/2023 by Arsalan Machado MD Left: Femur Synthes I 04.045.088 / / Synthes Screw Locking Im Nail 5mm 68mm 04.045.068 - [id number] Implanted:Qty: 1 on 03/18/2022 by Emmanuelle Ba MD at [facility] Explanted:Qty: 1 on 05/18/2023 by Arsalan Machado [...] Most Recently Relevant to Health Maintenance [facility] Member Subscriber Plan / Payer (Ef fective 2021-Present) Name:Lev Ford Relation to Subscriber:Self Name:Lev Ford Payer ID:[id number] (NAIC) Type:ANITA HMO/PPO Address: [place] [id number] [employer] COMPENS[employer] GENERIC Member Subscriber Plan / Payer (Ef fective 2022-Present) Name:Lev Ford Relation to Subscriber:Employee Name:[employer] (Home) Address: [address] [place] [address] Payer ID:[id number] Type:WORKERS COMPENSATION Address: [address] [place] [id number] WORKERS COMPENSATION GENERIC WORKERS COMPENSATION GENERIC WORKERS COMPENSATION GENERIC [employer] WORKERS COMPENSATION GENERIC WORKERS COMPENSATION GENERIC Advance Directives For more information, please contact: [phone] * Full Code (Latest Code Status on File) Date Activated Date Inactivated Comments 03/17/2022 7:38 PM 03/22/2022 8:13 PM Care Teams Head Of Merchandise Buying Relationship Specialty Start Date End Date Scotty Gilliam MD PCP - General Family Practice 10/23/23
[2025-01-03 20:38] LABS: Vitamin D 25 Hydroxy 61.8 ng/mL
[2025-01-05 14:36] LABS: Reference Lab Test Name PTH W Ionized CA
== END 2025-01-03 14:53 | disposition home or self-care (01) ==
LOC: ANHBWCLAB 14:53
PROVIDERS: PCP Nurse Practitioner Adult Health; Visit Provider Nurse Practitioner Adult Health
DX: E83.52 Hypercalcemia (principal); D64.9 Anemia, unspecified
CPT/HCPCS: 36415; 82306; 82330; 82607; 83970

== ENCOUNTER 2025-01-10 15:48 | Outpatient (CLI) | payer OTHER, SELFPAY ==
--- NOTE | ~2025-01-10 | US_ITS ---
EXAMINATION: US carotid duplex BI DATE: 01/10/2025 16:18 INDICATION: Vertigo. Dizziness and giddiness. TECHNIQUE: Grayscale, color Doppler, and pulsed Doppler images of the cervical carotid arteries were obtained. The degree of vessel stenosis is placed in one of the following categories: normal, <50%, 5 0-69%, >=70% but less than near-occlusion, near-occlusion, or total occlusion. Note that percent sten osis relative to normal distal artery lumen diameter is indirectly measured from velocity measurement s as described by Manan, et al. Radiology 2003; 229:340-346. COMPARISON: None. FINDINGS: RIGHT: The right common carotid artery (CCA) peak systolic velocity (PSV) is 127 cm/s. The right internal ca rotid artery (ICA) PSV is 106 cm/s. The right ICA end-diastolic velocity (EDV) is 36 cm/s. The right ICA/CCA PSV ratio is 1.4. Grayscale and color Doppler images yield an estimate of <50% diameter reduc tion from plaque in the ICA. The external carotid artery (ECA) PSV is 132 cm/s. There is antegrade fl ow in the right vertebral artery. LEFT: The left CCA PSV is 100 cm/s. The left ICA PSV is 142 cm/s. The left ICA EDV is 44 cm/s. The left ICA /CCA PSV ratio is 2.1. Grayscale and color Doppler images including secondary Doppler criteria yield an estimate of <50% diameter reduction from plaque in the ICA. The ECA PSV is 124 cm/s. There is ante grade flow in the left vertebral artery. IMPRESSION: 1. <50% stenosis in the right internal carotid artery. 2. <50% stenosis in the left internal carotid artery. Reviewed, dictated and finalized at location A.
== END 2025-01-10 15:49 | disposition home or self-care (01) ==
LOC: MICIMG 15:48
PROVIDERS: PCP Nurse Practitioner Adult Health; Visit Provider Nurse Practitioner Adult Health
DX: R42 Dizziness and giddiness (principal); I65.23 Occlusion and stenosis of bilateral carotid arteries
CPT/HCPCS: 93880

== ENCOUNTER 2025-01-22 08:39 | Outpatient (CLI) | payer OTHER, SELFPAY ==
--- NOTE | 2025-01-22 08:47 | EST_ITS ---
Patient Info Name: Tom Ford Age: 64 years : 1960 Gender: Male Ht: 69 in Wt: 268 lbs BSA: 2.49 m2 HR: 56 bpm BP: 131 / 71 mmHg Exam Date: 01/22/2025 8:47 AM Patient Status: O Admit Date: 01/22/2025 Exam Type: CA stress test treadmill A treadmill exercise stress test was performed. Staff Attending Provider: Emelina Bess Exercise Technologist: Melina Ashford Exercise Physician: Cy Suárez DO Summary 1. 1. Negative Dre exercise stress test for ischemic ST changes. However, patient achieved only 78% MPHR for age group which reduces sensitivity of the test. 2. 2. Reduced functional capacity, achieving 7 METs of workload. 3. 3. Hypertensive response to exercise. 4. 4. Appropriate HR response to exercise. 5. 5. Appropriate HR recovery at 1 minute post exercise. 6. 6. No imaging with stress testing. 7. 7. Patient informed of the above results. Protocol: Dre Stress ECG Details Stage: REST Duration (min): 1 min : 19 sec Speed (mph): 0.0 Grade (%): 0 HR (bpm): 56 SBP (mmHg): 131 DBP (mmHg): 71 METS: --- Stage: REST Duration (min): 4 min : 51 sec Speed (mph): 0.0 Grade (%): 0 HR (bpm): 60 SBP (mmHg): 131 DBP (mmHg): 71 METS: --- Stage: STAGE 1 Duration (min): 1 min : 0 sec Speed (mph): 1.7 Grade (%): 10 HR (bpm): 95 SBP (mmHg): 131 DBP (mmHg): 71 METS: --- Stage: STAGE 1 Duration (min): 2 min : 0 sec Speed (mph): 1.7 Grade (%): 10 HR (bpm): 106 SBP (mmHg): 131 DBP (mmHg): 71 METS: --- Stage: STAGE 1 Duration (min): 3 min : 0 sec Speed (mph): 1.7 Grade (%): 10 HR (bpm): 115 SBP (mmHg): 190 DBP (mmHg): 69 METS: --- Stage: STAGE 2 Duration (min): 1 min : 0 sec Speed (mph): 2.5 Grade (%): 12 HR (bpm): 119 SBP (mmHg): 190 DBP (mmHg): 69 METS: --- Stage: STAGE 2 Duration (min): 2 min : 0 sec Speed (mph): 2.5 Grade (%): 12 HR (bpm): 124 SBP (mmHg): 220 DBP (mmHg): 58 METS: --- Stage: STAGE 2 Duration (min): 2 min : 0 sec Speed (mph): 2.5 Grade (%): 12 HR (bpm): 124 SBP (mmHg): 220 DBP (mmHg): 58 METS: --- Stage: RECOVERY Duration (min): 0 min : 59 sec Speed (mph): 0.0 Grade (%): 0 HR (bpm): 104 SBP (mmHg): 220 DBP (mmHg): 58 METS: --- Stage: RECOVERY Duration (min): 1 min : 59 sec Speed (mph): 0.0 Grade (%): 0 HR (bpm): 89 SBP (mmHg): 220 DBP (mmHg): 58 METS: --- Stage: RECOVERY Duration (min): 2 min : 59 sec Speed (mph): 0.0 Grade (%): 0 HR (bpm): 72 SBP (mmHg): 177 DBP (mmHg): 60 METS: --- Stage: RECOVERY Duration (min): 3 min : 11 sec Speed (mph): 0.0 Grade (%): 0 HR (bpm): 76 SBP (mmHg): 177 DBP (mmHg): 60 METS: --- Rest HR: 60 bpm Peak HR: 124 bpm Rest Sys BP: 131 mmHg Peak Sys BP: 220 mmHg Max Pred HR: 158 bpm % Max Pred HR: 78 % Target HR: 134 bpm Max RPP: 27,280 bpm*mmHg Rosado Score: 1 BP Response: Patient exhibited a hypertensive response with stress Termination Reason: Maximal effort/unable to continue Cardiac Symptoms: Shortness of breath, Knee pain, cannot keep up with treadmill Max ST Seg Deviation: 0.80 mm Total Time: 5 min : 0 sec Rest Recio BP: 71 mmHg Peak Recio BP: 58 mmHg Angina Score: None Total METS: 7.1 Resting ECG Sinus rhythm. Stress ECG No ST changes. Arrhythmias None. Report Signatures
--- OUTSIDE RECORDS SUMMARY | 2025-01-22 08:56 | XMS_ITS | Clinical Summary ---
Author Organization [facility] [place] Address [address] [address] Care Team Providers Care Pocket Maker Name Role Phone Unavailable Primary Care Provider Unavailabl e Allergies No known active allergies Medications tamsulosin (FLOMAX) 0.4 mg capsule Take 1 Capsule (0.4 mg) by mouth daily. 90 Capsule 3 2 Active acetaminophen (TYLENOL) 500 mg Capsule Take 1,000 mg by mouth. 2 Active cholecalciferol , vitamin D3, 1,000 unit Take 1,000 Units by mouth. Active montelukast (SINGULAIR) 10 mg tablet Take 10 mg by mouth daily at bedtime. Active aspirin (ECOTRIN EC) 81 mg Tablet, Delayed Release (E.C.)Indicatio ns:TIA (transient ischemic attack) Take 1 Tablet (81 mg) by mouth daily. 4 Active lisinopriL (PRINIVIL) 20 mg tabletIndicatio ns:HTN (hypertension), benign Take 1 Tablet (20 mg) by mouth daily. 90 Tablet 5 Active hydroCHLOROthia zide (MICROZIDE) 12.5 mg capsuleIndicati ons:HTN (hypertension), benign Take 1 Capsule (12.5 mg) by mouth daily. 90 Capsule 5 Active fluticasone propionate (FLONASE) 50 mcg/spray Nash, Suspension nasal inhalerIndicati ons:Non-seasona l allergic rhinitis, unspecified trigger Administer 2 Sprays in each nostril daily. 32 Gram 5 Active fexofenadine (BREANNE) 180 mg tabletIndicatio ns:Non-seasonal allergic rhinitis, unspecified trigger Take 1 Tablet (180 mg) by mouth daily. For allergies 90 Tablet 5 Active traMADoL (ULTRAM) 50 mg tablet Take 50 mg by mouth every 6 hours as needed. 4 025 Discontinu ed(Alterna te therapy prescribed ) fexofenadine (BREANNE) 180 mg tabletIndicatio ns:Acute cough Take 1 Tablet (180 mg) by mouth daily. For allergies 90 Tablet 4 025 Discontinu ed(Reorder ) fluticasone propionate (FLONASE) 50 mcg/spray Nash, Suspension nasal inhalerIndicati ons:Acute non-recurrent maxillary sinusitis,Acute cough Administer 2 Sprays in each nostril daily. 16 Gram 4 025 Discontinu ed(Reorder ) Active Problems Problem Noted Date Diagnosed Date History of TIA (transient ischemic attack) and s troke 01/07/2025 Non-seasonal allergic rhinitis 01/07/2025 Low hemoglobin 06/14/2024 TIA (transient ischemic attack) 02/28/2024 Overview (04/05/2024): December 2023. Negative CT head. Pt did not complete MRI brain ordered. Prediabetes 01/09/2024 Chronic nonallergic rhinitis 07/05/2022 Closed fracture of femur 03/17/2022 Overview (04/28/2022): Added automatically from request for surgery [id number] Severe obesity (BMI 35.0-39.9) with comorbidity 02/29/2020 [...] Encounters Date Type Department Care Team Description 01/07/2025 2:30 PM CDT Office Visit [facility] [place] [address] [place] [address] Kelly Ruiz, ANA PAULA Non-seasonal allergic rhinitis, unspecified trigger (Primary Dx); Hypertension, unspecified type; History of TIA (transient ischemic attack) and stroke 12/27/2024 External Device Data ST[facility] ABSTRACTION Provider, Abstract 12/26/2024 External Device Data [facility] ABSTRACTION Provider, Abstract 12/25/2024 External Device Data [facility] ABSTRACTION Provider, Abstract 12/17/2024 2:00 PM CDT Procedure visit [facility] [place] [address] [place] [address] Issue of repeat prescription (Primary Dx) 12/17/2024 Refill [facility] at [facility] [address] [place] [id number] Jodi Mancilla DNP HTN (hypertension), benign 11/20/2024 External Device Data [...] Sign Reading Time Taken Comments Blood Pressure 136/78 01/07/2025 2:25 PM CDT Pulse 56 01/07/2025 2:25 PM CDT Temperature 36.5 C (97.7 F) 01/07/2025 2:25 PM CDT Respiratory Rate 17 01/07/2025 2:25 PM CDT Oxygen Saturation 98% 01/07/2025 2:25 PM CDT Inhaled Oxygen Concentration - - Weight 123.4 kg (272 lb) 01/07/2025 2:25 PM CDT Height 177.8 cm (5' 10) 01/07/2025 2:25 PM CDT Body Mass Index 39.03 01/07/2025 2:25 PM CDT Plan of Treatment Health Maintenance [...] Comments HEMOGLOBIN A1C Routine 08/18/2023 7:11 AM AIR SUPPORT CONTROL OFFICER Hypertension, unspecified type from Last 3 Months or Most Recently Relevant to Health Maintenance Results * (ABNORMAL) HEMOGLOBIN A1C (08/18/2023 7:11 AM AIR SUPPORT CONTROL OFFICER) HEMOGLOBIN A1C 6.2(H) <5.7 % of total Hgb [facility] Comment: For someone without known diabetes, [...] ESTIMATED AVERAGE GLUCOSE (MG/DL) 131 mg/dL [facility] ESTIMATED AVERAGE GLUCOSE (MMOL/L) 7.3 mmol/L [facility] Comment: HbA1c performed on [employer] platform. Test Performed at: [facility] [address] [place] [address] Lucinda Perez MD Blood 08/18/2023 7:11 AM AIR SUPPORT CONTROL OFFICER 08/19/2023 1:08 PM AIR SUPPORT CONTROL OFFICER us Beatriz Durant MD CHEMISTRY ORDERABLES Final Re sult [facility] [phone] [place] [address] [place] [address] from Last 3 Months or Most Recently Relevant to Health Maintenance Insurance [employer] OPEN ACCESS * Guarantor: [employer] Account Type Relation to Patient Date of Phone Billing Address Corporate Employer ATTN: JACK BRUCE [address] [address]
--- OUTSIDE RECORDS SUMMARY | 2025-01-22 08:56 | XMS_ITS | Clinical Summary ---
Author Organization [facility] [place] [facility] Address [address] [place] [address] Care Team Providers Care Deck Lid Fitter Name Role Phone Emelina Bess NP Primary Care Provider [phone] Allergies No known active allergies Medications lisinopriL [...] needed for dizziness 90 tablet 4 Active Additional Information Patient not taking.Reported on 01/10/2025 triamcinolone (KENALOG) 0.1 % creamIndications :Insect bite of left thigh, initial encounter Apply topically 3 (three) times a day for 10 days 80 g 4 Active Additional Information Patient not taking.Reported on 01/10/[address] (VOLTAREN) 75 mg EC tablet Take 1 tablet (75 mg total) by mouth 2 (two) times a day 60 tablet 5 02/10/20 25 Active Active Problems Problem Noted Date Diagnosed Date Painful orthopaedic hardware 05/05/2023 Chronic nonallergic rhinitis 07/05/2022 COVID 03/17/2022 Closed fracture of femur 03/17/2022 Overview (03/17/2022): Added automatically from request for surgery [id number] Acute pain due to trauma 03/17/2022 Class [...] Encounters Date Type Department Care Team Description 01/10/2025 2:55 PM CDT [address] Left knee pain, unspecified chronicity; Painful orthopaedic hardware; S/P total knee arthroplasty, left 01/10/2025 2:04 PM CDT - 01/10/2025 11:59 PM CDT Hospital Encounter [facility] Orthopedics and Sports Medicine [address] [place] [address] [address] [address] Discharge Disposition: Discharge to home or self care 01/10/2025 2:04 PM CDT - 01/10/2025 11:59 PM CDT Hospital Encounter [facility] Orthopedics [facility] Sports Medicine [address] [place] [address] [address] [address] Discharge Disposition: Discharge to home or self care 01/10/2025 2:00 PM CDT Office Visit [facility]ics and Sports Medicine [address] [place] [phone] Sekou Hunt NP Left knee pain, unspecified chronicity (Primary Dx); S/P total knee arthroplasty, left; Patellar tendinitis of left knee 01/10/2025 Orders Only [facility] Orthopedics and Sports Medicine [address] [place] [phone] Sekou Hunt NP Left knee pain, unspecified chronicity (Primary Dx); Painful orthopaedic hardware; S/P total knee arthroplasty, left 01/09/2025 Telephone [facility] Orthopedics and Sports Medicine [address] [place] [address] [address] [address] Osmel Ram MD 01/09/2025 Telephone [facility] Orthopaedic Surgery [address] [place] [address] Advanced Medicine [address]th [place] [address] [place] [address] Sejal Hall MS 01/07/2025 1:04 PM CDT - 01/07/2025 11:59 PM CDT Hospital Encounter [facility]) [address] [place] [address] Discharge Disposition: Discharge to home or self care 12/28/2024 Telephone [facility] Orthopaedic Surgery [address] [place] [address] Advanced Medicine 6th [place] [address] [place] [address] Bethanie Myers RMA 12/26/2024 Telephone [facility] Orthopaedic Surgery [address] 6th [place] [address] [place] [address] Sejal Hall MS 12/03/2024 Telephone [facility] Orthopedics and Sports Medicine [address] [place] [address] Osmel Ram MD from Last [...] pur e alcohol) AUDIT-C Answer Date Recorded Q1: How often do you have a drink containing alc ohol? 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 Gender Identity Not on file Sexual [...] CDT Inhaled Oxygen Concentration - - Weight 122.5 kg (270 lb) 01/10/2025 2:13 PM CDT Height 175.3 cm (5' 9) 01/10/2025 2:13 PM CDT Body Mass Index 39.87 01/10/2025 2:13 PM CDT Plan of Treatment Health Maintenance [...] this topic Medical Devices Implanted Type Area Survey Compiler Device Identifier Shelf Expiration Date Model / Serial / Lot Depuy Orthopaedics Inc [id number] Attune Cruciate Retain Cementless Knee Left 7 Component Femoral - [id number] Implanted:Qty: 1 on 04/22/2021 by Osmel Ram MD at [facility] Left: Knee Depuy Orthopaed[employer] Inc 08/07/2030 [id number] / / [id number] Depuy Orthopaed[employer] Inc [id number] Attune Cementless Rotate Platform Knee 8 Baseplate Tibial - [id number] Implanted:Qty: 1 on 04/22/2021 by Osmel Ram MD at [facility] Left: Knee [employer]uy Orthopaed[employer] Inc 08/07/2030 [id number] / / [id number] Depuy Orthopaed[employer] Inc [id number] Attune 10mm Cruciate Retaining Rotate Platform Knee 7 Insert - [id number] Implanted:Qty: 1 on 04/22/2021 by Osmel Ram MD at [facility] Left: Knee [employer]uy [employer]opaed[employer] Inc 02/04/2025 [id number] / / [id number] Synthes Screw Locking Threaded 5.0x90mm 04.045.090s - [id number] Implanted:Qty: 1 on 03/18/2022 by Emmanuelle Ba MD at [facility] Left: Femur Synthes I 04/07/2031 04.045.090S / / [id number] Synthes Nail Retrograde Fem 10mm 400mm 5 Deg Bend Titanium Sterile 04.233.040s - [id number] Implanted:Qty: 1 on 03/18/2022 by Emmanuelle Ba MD at [facility] Left: Femur Synthes I 10/05/2025 04.233.040S / / [id number] Screw Locking Im Nail 5mm 84mm - [id number] Implanted:Qty: 1 on 03/18/2022 by Emmanuelle Ba MD at [facility] Left: Femur Synthes I 04.045.084 / / Screw Locking Im Nail 5mm 36mm - [id number] Implanted:Qty: 2 on 03/18/2022 by Emmanuelle Ba MD at [facility] Left: Femur Synthes I 04.045.036 / / Explanted Type Area Survey Compiler Device Identifier Shelf Expiration Date Model / Serial / Lot Synthes Screw Locking Im Nail 5mm 80mm 04.045.080 - [id number] Explanted:Qty: 1 on 03/18/2022 by Emmanuelle Ba MD at [facility] Left: Femur Synthes I 04.045.0 80 / / Synthes Screw Locking Im Nail 5mm 88mm 04.045.088 - [id number] Implanted:Qty: 1 on 03/18/2022 by Emmanuelle Ba MD at [facility] Explanted:Qty: 1 on 05/18/2023 by Arsalan Machado MD Left: Femur Synthes I / / Synthes Screw Locking Im Nail 5mm 68mm - [id number] Implanted:Qty: 1 on 03/18/2022 by Emmanuelle Ba MD at [facility] Explanted:Qty: 1 on 05/18/2023 by Arsalan Machado MD Left: Femur Synthes I / / Procedures Procedure Name Priority Date/Time Associated Diagnosis Comments DIFFERENTIAL AUTO Routine 01/10/2025 2:5 8 PM CDT Left knee pain, unspecified chronicity Painful orthopaedic hardware S/P total knee arthroplasty, left CBC WITH AUTO DIFFERENTIAL Routine 01/10/2025 2:58 PM CDT Left knee pain, unspecified chronicity Painful orthopaedic hardware S/P total knee arthroplasty, left ERYTHROCYTE SEDIMENTATION RATE Routine 01/10/2025 2:58 PM CDT Left knee pain, unspecified chronicity Painful orthopaedic hardware S/P total knee arthroplasty, left CRP (ACUTE PHASE) Routine 01/10/2025 2:5 8 PM CDT Left knee pain, unspecified chronicity Painful orthopaedic hardware S/P total knee arthroplasty, left XR KNEE LEFT 4 OR MORE VIEWS Schedule Routine, Read Routine (OP Routine) 01/10/2025 2:06 PM CDT Left knee pain, unspecified chronicity XR PELVIS 1 OR 2 VIEWS Schedule Routine, Read Routine (OP Routine) 01/10/2025 2:06 PM CDT Left knee pain, unspecified chronicity XR TRANSFER OF OUTSIDE FILMS Routine 01/07/2025 1:04 PM CDT COLONOSCOPY Routine 01/14/2016 from Last 3 Months or Most Recently Relevant to Health Maintenance Results * Differential, auto (01/10/2025 2:58 PM CDT) Neutrophil abs 5.02 1.50 - 6.50 K/cumm Imm gran abs 0.03 0.00 - 0.10 K/cumm [facility] ([place]) Lymphocyte abs 1.54 0.80 - 3.30 K/cumm [facility]) Monocyte abs 0.51 0.20 - 0.80 K/cumm [facility]) Eosinophil abs 0.16 0.00 - 0.50 K/cumm [facility]) Basophil abs 0.04 0.00 - 0.10 K/cumm [facility]) Neutrophil pct 68.8 % [facility] Comment: Interpretive Data Percent cell count reference ranges are not reported, since discordance with absolute values may lead to misinterpretation of CBC data. Current Interpretive Data was last revised on 2017. Imm gran pct 0.4 % [facility] Comment: Interpretive Data Percent cell count reference ranges are not reported, since discordance with absolute values may lead to misinterpretation of CBC data. Current Interpretive Data was last revised on 2017. Lymphocyte pct 21.1 % [facility] Comment: Interpretive Data Percent cell count reference ranges are not reported, since discordance with absolute values may lead to misinterpretation of CBC data. Current Interpretive Data was last revised on 2017. Monocyte pct 7.0 % [facility] ([place] Comment: Interpretive Data Percent cell count reference ranges are not reported, since discordance with absolute values may lead to misinterpretation of CBC data. Current Interpretive Data was last revised on 2017. Eosinophil pct 2.2 % [facility] Comment: Interpretive Data Percent cell count reference ranges are not reported, since discordance with absolute values may lead to misinterpretation of CBC data. Current Interpretive Data was last revised on 2017. Basophil pct 0.5 % [facility] Comment: Interpretive Data Percent cell count reference ranges are not reported, since discordance with absolute values may lead to misinterpretation of CBC data. Current Interpretive Data was last revised on 2017. Blood 01/10/2025 2:58 PM CDT 01/10/2025 3:43 PM CDT Sekou Hunt NP LAB BLOOD ORDERABLES Fin al Result [facility] [address] [facility] [place] [employer] [address] * (ABNORMAL) CBC with auto differential (01/10/2025 2:58 PM CDT) WBC 7.30 3.80 - 9.90 K/cumm Hgb 11.8(L) 13.0 - 17.5 g/dL [facility]) Hct 36.1(L) 38.9 - 50.3 % [facility]) Plt 295 150 - 400 K/cumm [facility]) MPV 9.9 9.1 - 12.3 fL [facility] RBC 4.14(L) 4.30 - 5.80 M/cumm [facility] ([place]) MCV 87.2 81.3 - 96.4 fL [facility] MCH 28.5 27.1 - 33.3 pg [facility]) MCHC 32.7 32.3 - 35.7 g/dL [facility]) RDW CV 13.2 11.1 - 14.9 % [facility] RDW SD 41.5 35.7 - 48.1 fL [facility]) NRBC abs 0.00 0.00 - 0.01 K/cumm [facility]) Blood 01/10/2025 2:58 PM CDT 01/10/2025 3:43 PM CDT Sekou Hunt NP LAB BLOOD ORDERABLES Fin al Result [facility] ([place]) 1 [facility] [employer] [place] [address] * (ABNORMAL) Erythrocyte sedimentation rate (01/10/2025 2:58 PM CDT) Erythrocyte sedimentation rate 34(H) 1 - 20 mm/hr Blood 01/10/2025 2:58 PM CDT 01/10/2025 3:43 PM CDT Sekou Hunt NP LAB BLOOD ORDERABLES Fin al Result [facility] ([place]) 1 [facility] [employer] [place] [address] * CRP (acute phase) (01/10/2025 2:58 PM CDT) CRP 4.4 <=10.0 mg/L Blood 01/10/2025 2:58 PM CDT 01/10/2025 3:43 PM CDT Sekou Hunt NP LAB BLOOD ORDERABLES Fin al Result Performing Organization Address [facility] Co de Phone Number [facility] ([place]) 1 [facility] [employer] [place] [address] * XR Knee Left 4 or More Views (01/10/2025 2:06 PM CDT) Anatomical Region Laterality Modality Lower Extremities, Knee Left Digital Radiography Narrative 01/10/2025 3:10 PM CDT X-rays of the left knee are reviewed and interpreted and demonstrate no acute fractures subluxations or osseous changes. Status post TKA changes noted with implants in acceptable position. Healed periprosthetic fracture with unchanged angulation. 2 locking screws from distal femur have been removed since last x-rays. Increased Calcification noted in patellar tendon Sekou Hunt MERCHANDISE HANDLER IMG XR PROCEDURES Edited Result - Final * XR Pelvis 1 or 2 Views (01/10/2025 2:06 PM CDT) Anatomical Region Laterality Modality Body, Pelvis N/A Digital Radiogra phy Narrative 01/10/2025 3:09 PM CDT AP pelvis view today negative for fracture, dislocation or bony lesions. The joints are well maintained with mild OA noted. Proximal portion of femoral nail noted without signs of complications. us Sekou Hunt NP IMG XR PROCEDURES Final Result * XR Outside Reference (01/07/2025 1:04 PM CDT) Impressions [facility] - 01/07/2025 1:04 PM CDT These images are for Reference purposes only and have not been reviewed by [facility]. There will be no report generated by a [facility] Radiologist. Narrative [facility] - 01/07/2025 1:04 PM CDT EXAMINATION: Images For Reference Purposes Only Arsalan Machado MD IMG XR PROCEDURES Final R esult [facility] * Colonoscopy (01/14/2016) Anatomical Region Laterality Modality Other Historical Provider ENDOSCOPY PROCEDURES Marycruz l Result from Last 3 Months or Most Recently Relevant to Health Maintenance Insurance [employer] ALLEGIANCE [place] WORKERS COMPENSATION GENERIC Member Subscriber Plan / Payer (Ef fective 2022-Present) Name:Lev Ford Relation to Subscriber:Employee Name:[employer] (Home) Address: [address] [place] [address] Payer ID:[id number] Type:WORKERS COMPENSATION Address: [address] [place] [phone] WORKERS COMPENSATION GENERIC Member Subscriber Plan / Payer (Ef fective for All Dates) Name:Lev Ford Member ID:Not on file Relation to Subscriber:Not on file Name:LEV FORD Date of :1960 (Home) Address: [address] [place] [address] Payer ID:[id number] Type:WORKERS COMPENSATION Address: [address] [place] [phone] WORKERS COMPENSATION GENERIC Member Subscriber Plan / Payer (Ef fective 2022-Present) Name:Lev Ford Relation to Subscriber:Employee Name:[employer] (Home) Address: [address] [place] [address] [place] [address] Payer ID:[id number] Type:WORKERS COMPENSATION Address: [address] [place] [phone] WORKERS COMPENSATION GENERIC [employer] [place] WORKERS COMPENSATION GENERIC WORKERS COMPENSATION GENERIC Advance Directives For more information, please contact: [phone] * Full Code (Latest Code Status on File) Date Activated Date Inactivated Comments 03/17/2022 7:38 PM 03/22/2022 8:13 PM Care Teams Deck Lid Fitter Relationship Specialty Start Date End Date Emelina Bess NP [address] [place] [address] PCP - General Nurse Practitioner 01/10/25
--- OUTSIDE RECORDS SUMMARY | 2025-01-22 08:56 | XMS_ITS | Referral Summary ---
Author Organization [facility] [place] [facility] Address [address] [place] [address] Care Team Providers Care Administration Intern Name Role Phone Emelina Bess NP Primary Care Provider [phone] Encounters Date Type Department Care Team Description 01/10/2025 2:55 PM CDT Lab [address] Left knee pain, unspecified chronicity; Painful orthopaedic hardware; S/P total knee arthroplasty, left 01/10/2025 Orders Only [facility] Medical [facility] Orthopedics and Sports Medicine [address] [place] [phone] Sekou Hunt NP Left knee pain, unspecified chronicity (Primary Dx); Painful orthopaedic hardware; S/P total knee arthroplasty, left 01/10/2025 2:04 PM CDT - 01/10/2025 11:59 PM CDT Hospital Encounter [facility] Medical [facility] Orthopedics and Sports Medicine [address] [place] [phone] Discharge Disposition: Discharge to home or self care 01/10/2025 2:04 PM CDT - 01/10/2025 11:59 PM CDT Hospital Encounter [facility] Orthopedics and Sports Medicine [address] [place] [phone] Discharge Disposition: Discharge to home or self care 01/10/2025 2:00 PM CDT Office Visit [facility] Orthopedics and Sports Medicine [address] [place] [phone] Sekou Hunt NP Left knee pain, unspecified chronicity (Primary Dx); S/P total knee arthroplasty, left; Patellar tendinitis of left knee 01/09/2025 Telephone [facility] Orthopedics and Sports Medicine [address] [place] [address] [address] [place] [phone] Osmel Ram MD 01/09/2025 Telephone [facility] Orthopaedic Surgery [address] [place] [address] Advanced Medicine 6th [place] [address] [place] [address] Sejal Hall, 01/07/2025 1:04 PM CDT - 01/07/2025 11:59 PM CDT Hospital Encounter [facility] ([facility]) [address] [place] [address] Discharge Disposition: Discharge to home or self care 12/28/2024 Telephone [facility] Orthopaedic Surgery [address] [place] [address] Advanced Medicine 6th [place] [address] [place] [address] Bethanie Myers RMA 12/26/2024 Telephone [facility] Orthopaedic Surgery [address] [place] [address] Advanced Medicine 6th [place] [address] [place] [address] Sejal Hall, MS 12/03/2024 Telephone [facility] Orthopedics and Sports Medicine [address] [place] [address] [address] [place] [address] Osmel Ram MD from Last 3 Months [...] (03/17/2022): Added automatically from request for surgery [id number] Acute pain due to trauma 03/17/2022 Class [...] on file Legal 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 Gender Identity Not on file Sexual Orientation [...] 01/10/2025 2:13 PM CDT Plan of Treatment Not on file Medical Devices Implanted Type Area Commercial Estimator Device Identifier Shelf Expiration Date Model / Serial / Lot Depuy Orthopaedics Inc [id number] Attune Cruciate Retain Cementless Knee Left 7 Component Femoral - [id number] Implanted:Qty: 1 on 04/22/2021 by Osmel Ram MD at [facility] Left: Knee [employer]uy Orthopaed[employer] Inc 08/07/2030 [id number] / / [id number] Depuy Orthopa[employer] Inc [id number] Attune Cementless Rotate Platform Knee 8 Baseplate Tibial - [id number] Implanted:Qty: 1 on 04/22/2021 by Osmel Ram MD at [facility] Left: Knee [employer]uy Orthopaed[employer] Inc 08/07/2030 [id number] / / [id number] Depuy Orthopa[employer] Inc [id number] Attune 10mm Cruciate Retaining Rotate Platform Knee 7 Insert - [id number] Implanted:Qty: 1 on 04/22/2021 by Osmel Ram MD at [facility] Left: Knee [employer]uy [employer] Inc 02/04/2025 [id number] / / [id number] Synthes Screw Locking Threaded 5.0x90mm 04.045.090s - [id number] Implanted:Qty: 1 on 03/18/2022 by Emmanuelle Ba MD at [facility] Left: Femur Synthes I 04/07/2031 04.045.090S / / [id number] Synthes Nail Retrograde Fem 10mm 400mm 5 Deg Bend Titanium Sterile 04.233.040s - [id number] Implanted:Qty: 1 on 03/18/2022 by Emmanuelle Ba MD at [facility] Left: Femur Synthes I 10/05/2025 04.233.040S / / [id number] Screw Locking Im Nail 5mm 84mm - [id number] Implanted:Qty: 1 on 03/18/2022 by Emmanuelle Ba MD at [facility] Left: Femur Synthes I 04.045.084 / / Screw Locking Im Nail 5mm 36mm - [id number] Implanted:Qty: 2 on 03/18/2022 by Emmanuelle Ba MD at [facility] Left: Femur Synthes I 04.045.036 / / Explanted Type Area Commercial Estimator Device Identifier Shelf Expiration Date Model / Serial / Lot Synthes Screw Locking Im Nail 5mm 80mm 04.045.080 - [id number] Explanted:Qty: 1 on 03/18/2022 by Emmanuelle Ba MD at [facility] Left: Femur Synthes I 04.045.0 80 / / Synthes Screw Locking Im Nail 5mm 88mm 04.045.088 - [id number] Implanted:Qty: 1 on 03/18/2022 by Emmanuelle Ba MD at [facility] Explanted:Qty: 1 on 05/18/2023 by Arsalan Machado MD Left: Femur Synthes I 04.045.088 / / Synthes Screw Locking Im Nail 5mm 68mm 04.045.068 - [id number] Implanted:Qty: 1 on 03/18/2022 by Emmanuelle Ba MD at [facility] Explanted:Qty: 1 on 05/18/2023 by Arsalan Machado [...] NP LAB BLOOD ORDERABLES Fin al Result [facility] 1 [facility] [place] [address] * (ABNORMAL) CBC with auto differential (01/10/2025 [...] NRBC abs 0.00 0.00 - 0.01 K/cumm [facility] ([place]) Blood 01/10/2025 2:58 PM CDT 01/10/2025 3:43 PM CDT Sekou Hunt NP LAB BLOOD ORDERABLES Fin al Result Performing Organization Address [facility] Co de Phone Number [facility] ([place]) 1 [facility] [place] [address] * (ABNORMAL) Erythrocyte sedimentation rate (01/10/2025 2:58 PM CDT) Erythrocyte sedimentation rate 34(H) 1 - 20 mm/hr Blood 01/10/2025 2:58 PM CDT 01/10/2025 3:43 PM CDT Sekou Hunt NP LAB BLOOD ORDERABLES Fin al Result Performing Organization Address [facility] de Phone Number [facility] ([place]) 1 [facility] [place] [address] * CRP (acute phase) (01/10/2025 2:58 PM CDT) CRP 4.4 <=10.0 mg/L Blood 01/10/2025 2:58 PM CDT 01/10/2025 3:43 PM CDT Sekou Hunt NP LAB BLOOD ORDERABLES Fin al Result Performing Organization Address [facility] Co de Phone Number [facility] ([place]) 1 [facility] [place] [address] * XR Knee Left 4 or More [...] Calcification noted in patellar tendon Sekou Hunt NP IMG XR PROCEDURES Edited Result - Final * XR Pelvis 1 or 2 Views (01/10/2025 2:06 PM CDT) Anatomical Region Laterality Modality Body, Pelvis N/A Digital Radiogra phy Narrative 01/10/2025 3:09 PM CDT AP pelvis view today negative for fracture, dislocation or bony lesions. The joints are well maintained with mild OA noted. Proximal portion of femoral nail noted without signs of complications. Sekou Hunt NP IMG XR PROCEDURES Final Result * XR Outside Reference (01/07/2025 1:04 PM CDT) Impressions [facility] - 01/07/2025 1:04 PM CDT These images are for Reference purposes only and have not been reviewed by [facility]. There will be no report generated by a [facility] Radiologist. Narrative [facility] - 01/07/2025 1:04 PM CDT EXAMINATION: Images For Reference Purposes Only Arsalan Machado MD IMG XR PROCEDURES Final R esult [facility] * Colonoscopy (01/14/2016) Anatomical Region Laterality Modality Other Historical Provider ENDOSCOPY PROCEDURES Marycruz l Result from Last 3 Months or Most Recently Relevant to Health Maintenance Insurance [employer] [facility] Member Subscriber Plan / Payer (Ef fective 2021-Present) Name:Lev Ford Relation to Subscriber:Self Name:Lev Ford Payer ID:[id number] (NA) Type:CIGNA HMO/PPO Address: [place] [id number] [employer] WORKERS 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
== END 2025-01-22 08:40 | disposition home or self-care (01) ==
LOC: ANHCARD 08:40
PROVIDERS: PCP Nurse Practitioner Adult Health; Visit Provider Nurse Practitioner Adult Health
DX: R42 Dizziness and giddiness (principal); Z91.89 Other specified personal risk factors, not elsewhere classified
CPT/HCPCS: 93017

== ENCOUNTER 2025-05-27 07:17 | Outpatient (CLI) | payer OTHER, SELFPAY ==
--- OUTSIDE RECORDS SUMMARY | 2025-05-27 07:29 | XMS_ITS | Clinical Summary ---
Author Organization [facility] [employer] [place] Address [address] [place] [address] Care Team Providers Care Ux Architect Name Role Phone Unavailable Primary Care Provider Unavailabl e Allergies No known active allergies Medications tamsulosin (FLOMAX) 0.4 mg capsule Take 1 Capsule (0.4 mg) by mouth daily. 90 Capsule 3 2 Active Additional Information Patient not taking.Reported on 02/18/2025 acetaminophen (TYLENOL) 500 mg Capsule Take 1,000 mg by mouth. 2 Active cholecalciferol , vitamin D3, 1,000 unit Take 1,000 Units by mouth. Active montelukast (SINGULAIR) 10 mg tablet Take 10 mg by mouth daily at bedtime. Active aspirin (ECOTRIN EC) 81 mg Tablet, Delayed Release (E.C.)Indicatio ns:TIA (transient ischemic attack) Take 1 Tablet (81 mg) by mouth daily. 4 Active fluticasone propionate (FLONASE) 50 mcg/spray [place], Suspension nasal inhalerIndicati ons:Non-seasona l allergic rhinitis, unspecified trigger Administer 2 Sprays in each nostril daily. 32 Gram 5 Active metFORMIN (GLUCOPHAGE XR) 500 mg Extended Release 24 hour tablet 5 Active diclofenac sodium (VOLTAREN) 75 mg Tablet, Delayed Release (E.C.) Take 75 mg by mouth 2 times daily. Active lisinopriL (PRINIVIL) 20 mg tabletIndicatio ns:HTN (hypertension), benign Take 1 Tablet (20 mg) by mouth daily. 90 Tablet 5 Active hydroCHLOROthia zide (MICROZIDE) 12.5 mg capsuleIndicati ons:HTN (hypertension), benign Take 1 Capsule (12.5 mg) by mouth daily. 90 Capsule 5 Active fexofenadine (BREANNE) 180 mg tabletIndicatio ns:Non-seasonal allergic rhinitis, unspecified trigger Take 1 Tablet (180 mg) by mouth daily. For allergies 90 Tablet 5 Active fexofenadine (BREANNE) 180 mg tabletIndicatio ns:Non-seasonal allergic rhinitis, unspecified trigger Take 1 Tablet (180 mg) by mouth daily. For allergies 90 Tablet 5 025 Discontin ued(Reord er) Active Problems Problem Noted [...] (04/28/2022): Added automatically from request for surgery [id number] Severe obesity (BMI 35.0-39.9) with comorbidity 02/29/2020 [...] Encounters Date Type Department Care Team Description 05/07/2025 1:00 PM CDT Procedure visit [facility] ([facility]3] at [facility] [place] [address] [place] [address] Issue of repeat prescription (Primary Dx) 05/06/2025 Refill [facility] ([facility]3] at [place] [address] [place] [address] Kelly Ruiz, ANA PAULA Non-seasonal allergic rhinitis, unspecified trigger 04/23/2025 External Device Data [facility] ABSTRACTION Provider, Abstract 04/23/2025 External Device Data [place] Provider, Abstract 04/16/2025 External Device Data [place] ABSTRACTION Provider, Abstract 03/26/2025 External Device Data [place] ABSTRACTION Provider, Abstract 03/22/2025 1:00 PM CDT Procedure visit [facility] ([facility]3] at [place] [address] [place] [address] Issue of repeat prescription (Primary Dx) 03/21/2025 Refill [facility]3] at [place] [address] [place] [address] Yesi Livingston MD HTN (hypertension), benign from Last 3 Months Immunizations Immunization Administration [...] Sign Reading Time Taken Comments Blood Pressure 122/68 02/18/2025 2:52 PM CDT Pulse 60 02/18/2025 2:52 PM CDT Temperature 36.4 C (97.6 F) 02/18/2025 2:52 PM CDT Respiratory Rate 17 02/18/2025 2:52 PM CDT Oxygen Saturation 97% 02/18/2025 2:52 PM CDT Inhaled Oxygen Concentration - - Weight 122.9 kg (271 lb) 02/18/2025 2:52 PM CDT Height 177.8 cm (5' 10) 02/18/2025 2:52 PM CDT Body Mass Index 38.88 02/18/2025 2:52 PM CDT Plan of Treatment Health Maintenance Due Date Last Done Comments FIT-DNA Q 3 years 2007 FIT/FOBT Q 1 year 2007 Flex Sig/CT Colonography Q 5 years 2007 RSV VACCINE (60+ or ) (1 - Risk 50-74 years 1-dose series) 2012 DTAP/TDAP/TD VACCINES (2 - T d or Tdap) 11/13/2023 11/12/2013 INFLUENZA VACCINE (#1) 2025 Pre-Diabetes and Diabetes Screening 08/18/2026 08/18/2023, 12/28/2022, 02/12/2022, Additional history exists COLORECTAL SCREENING 01/06/2027 01/06/2017 (Previously completed), 01/14/2016, 01/14/2016 (Previously completed) Colorectal Cancer Screening 01/06/2027 ZOSTER VACCINE Completed 10/04/2019, 08/03/2019 Procedures Procedure Name Priority Date/Time Associated Diagnosis Comments HEMOGLOBIN A1C Routine 08/18/2023 7:11 AM DERRICK BUILDER Hypertension, unspecified type from Last 3 Months or Most Recently Relevant to Health Maintenance Results * (ABNORMAL) HEMOGLOBIN A1C (08/18/2023 7:11 AM DERRICK BUILDER) HEMOGLOBIN A1C 6.2(H) <5.7 % of total [...] ESTIMATED AVERAGE GLUCOSE (MMOL/L) 7.3 mmol/L [facility] Comment: HbA1c performed on Pina platform. Test Performed at: [facility] [address] [address] Lucinda Perez MD Blood 08/18/2023 7:11 AM DERRICK BUILDER 08/19/2023 1:08 PM DERRICK BUILDER us Beatriz Durant MD CHEMISTRY ORDERABLES Final Re sult [facility] [phone] Informed [place] [address] [place] [phone] from Last 3 Months or Most Recently Relevant to Health Maintenance Insurance [employer]LE[employer]ANCE OPEN ACCESS * Guarantor: [employer] Account Type Relation to Patient Date of Phone Billing Address Corporate Employer ATTN: JACK BRUCE [address] [address]
--- OUTSIDE RECORDS SUMMARY | 2025-05-27 07:29 | XMS_ITS | Clinical Summary ---
Author Organization [facility] Address [address] [place] [address] Care Team Providers Care Forest Fire Officer Name Role Phone Emelina Bess NP Primary Care Provider Allergies No known active allergies Medications lisinopriL (PRINIVIL,ZESTR [place]) 20 mg tablet Take 1 tablet (20 mg total) by mouth every morning Active tamsulosin (FLOMAX) 0.4 mg extended release capsule Take 2 capsules (0.8 mg total) by mouth nightly Active hydroCHLOROthia zide (MICROZIDE) 12.5 mg capsule Take 1 capsule [...] clot prevention. Take with food. 28 tablet 05/18/20 23 Active fluticasone propionate (FLONASE) 50 mcg/actuation nasal sprayIndication s:Allergic rhinitis, unspecified seasonality, unspecified trigger Administer 2 sprays into each nostril daily 3 each 11/11/19 24 Active meclizine (ANTIVERT) 12.5 mg tabletIndicatio ns:Dizziness Take 1 tablet (12.5 mg total) by mouth 3 (three) times a day as needed for dizziness 90 tablet 11/11/19 24 Active triamcinolone (KENALOG) 0.1 % creamIndication s:Insect bite of left thigh, initial encounter Apply topically 3 (three) times a day for 10 days 80 g 04/26/[address] (VOLTAREN) 75 mg EC tabletIndicatio ns:It band syndrome, left,S/P total knee arthroplasty, left TAKE 1 TABLET (75 MG TOTAL) BY MOUTH TWO (2) (TWO) TIMES a DAY 60 tablet 05/16/[address] (VOLTAREN) 75 mg EC tabletIndicatio ns:It band syndrome, left,S/P total knee arthroplasty, left Take 1 tablet (75 mg total) by mouth 2 (two) times a day 60 tablet 03/28/20 25 025 Discontinued Active Problems Problem Noted Date Diagnosed Date Painful orthopaedic hardware 05/05/2023 Chronic nonallergic rhinitis 07/05/2022 COVID 03/17/2022 Closed fracture of femur 03/17/2022 Overview (03/17/2022): Added automatically from request for surgery [id number] Acute pain due to trauma 03/17/2022 Class [...] Encounters Date Type Department Care Team Description 05/14/2025 Telephone [facility] [address] [facility] 6th [place] [address] [place] [address] Arsalan Machado MD 05/10/2025 Orders Only [facility] [address] [facility] [address] [place] [address] Jaiden Tracey MD Chronic pain of left knee (Primary Dx); S/P total knee arthroplasty, left 05/07/2025 Telephone [facility] [address] [facility] 6th [place] [address] [place] [address] Arsalan Machado MD 05/01/2025 Telephone [facility] Medical [facility] Orthopedics and Sports Medicine [address] [place] [address] [address] [place] [address] Jenise Horowitz MA 05/01/2025 Orders Only [facility] Orthopedics and Sports Medicine [address] [place] [address] [address] [place] [address] Marcelino Milan MD S/P total knee arthroplasty, left (Primary Dx); Left knee pain, unspecified chronicity; Patellar tendinitis of left knee; Painful orthopaedic hardware 04/30/2025 11:00 AM CDT Office Visit [facility] Medical [facility] [address] [place] [address] [address] [place] [address] Marcelino Milan MD Chronic pain of left knee (Primary Dx) 04/30/2025 Orders Only [facility] Medical [facility] Medicine [address] [place] [address] [address] [place] [address] Marcelino Milan MD 04/16/2025 Orders Only [facility] Medical [facility] Orthopedic and Sports Medicine [address] [place] [address] Marcelino Milan MD 04/16/2025 Telephone [facility] Orthopedics [facility] Medicine [address] [place] [address] [address] [place] [address] Osmel Ram MD 04/12/2025 4:40 PM CDT - 04/12/2025 11:59 PM CDT Hospital Encounter [facility] [address] [place] [address] Painful total knee replacement, initial encounter Discharge Disposition: Discharge to home or self care 04/12/2025 11:59 AM CDT - 04/12/2025 11:59 PM CDT Hospital Encounter [facility] [address] [place] [address] Discharge Disposition: Discharge to home or self care 04/12/2025 11:59 AM CDT - 04/12/2025 11:59 PM CDT Hospital Encounter [facility] [address] [place] [address] Pain due to total left knee replacement, initial encounter; Mechanical loosening of prosthetic knee, initial encounter Discharge Disposition: Discharge to home or self care 04/12/2025 Telephone [facility] Orthopedics [facility] Sports Medicine [address] [place] [address] [address] [place] [phone] Osmel Ram MD 04/09/2025 Telephone [facility] Medical [facility] [address] [place] [address] [address] [place] [phone] Marcelino Milan MD 04/05/2025 Orders Only [facility] Orth[facility]ics [facility] Medicine [address] [place] [address] [address] [place] [address] Marcelino Milan MD Pain due to total left knee replacement, initial encounter (Primary Dx); Mechanical loosening of prosthetic knee, initial encounter 04/04/2025 Telephone [facility] Orthopedic and Sports Medicine [address] [place] [phone] Osmel Ram MD Knee Pain 03/28/2025 Orders Only [facility] [address] [place] [phone] Osmel Ram MD It band syndrome, left (Primary Dx); S/P total knee arthroplasty, left 03/28/2025 Orders Only [facility] [address] [place] [phone] Osmel Ram MD It band syndrome, left (Primary Dx); S/P total knee arthroplasty, left 03/27/2025 3:00 PM CDT Office Visit [facility] Orthopedic [facility] Sports Medicine [address] [place] [phone] Osmel Ram MD It band syndrome, left (Primary Dx); S/P total knee arthroplasty, left from Last 3 Months Immunizations Immunization Administration [...] on file 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 Gender Identity Not on file Sexual Orientation Not on file Obstetrics History Last Filed Vital Signs Vital Sign Reading Time Taken Comments Blood Pressure 126/74 04/30/2025 11:02 AM CDT Pulse 57 04/30/2025 11:02 AM CDT Temperature 36.6 C (97.8 F) 04/26/2024 6:14 PM CDT Respiratory Rate 18 04/26/2024 6:14 PM CDT Oxygen Saturation 97% 04/26/2024 6:14 PM CDT Inhaled Oxygen Concentration - - Weight 120.2 kg (265 lb) 04/30/2025 11:02 AM CDT Height 175.3 cm (5' 9) 04/30/2025 11:02 AM CDT Body Mass Index 39.13 04/30/2025 11:02 AM CDT Plan of Treatment Health Maintenance Due Date Last Done Comments Hepatitis C Screening 1962 Prostate Cancer Screening-PSA 1962 Hepatitis B Screening 1980 Regular Well Visit/Exam 18-64 1980 Depression Screening 03/26/2022 03/26/2021 Colon Cancer Screening-Colonoscopy 01/13/2023 01/14/2016 DTaP/Tdap/Td Vaccine (2 - Td or Tdap) 11/13/2023 11/12/2013 Covid-19 Vaccine (2 - season) 2025 11/13/2020 Influenza Vaccine (#1) 2025 Colon Cancer Screening-CT Colonography Discontinued 01/14/2016 Colon Cancer Screening-DNA Stool Discontinued 01/14/2016 Colon Cancer Screening-FIT Discontinued 01/14/2016 Colon Cancer Screening-Sigmoidoscopy Discontinued 01/14/2016 Zoster Vaccine Completed 10/04/2019, 08/03/2019 Pneumococcal vaccine <65 Aged Out No longer eligible based on patient's age to complete this topic Medical Devices Implanted Type Area Property Insurance Agent Device Identifier Shelf Expiration Date Model / Serial / Lot [employer] [id number] Attune Cruciate Retain Cementless Knee Left 7 Component Femoral - [id number] Implanted:Qty: 1 on 04/22/2021 by Osmel Ram MD at [facility] Left: Knee [employer] 08/07/2030 [id number] / / [id number] [employer] [id number] Attune Cementless Rotate Platform Knee 8 Baseplate Tibial - [id number] Implanted:Qty: 1 on 04/22/2021 by Osmel Ram MD at [facility] Left: Knee [employer] 08/07/2030 [id number] / / [id number] [employer] [id number] Attune 10mm Cruciate Retaining Rotate Platform Knee 7 Insert - [id number] Implanted:Qty: 1 on 04/22/2021 by Osmel Ram MD at [facility] Left: Knee [employer] 02/04/2025 [id number] / / [id number] Synthes Screw Locking Threaded 5.0x90mm 04.045.090s - [id number] Implanted:Qty: 1 on 03/18/2022 by Emmanuelle Ba MD at [facility] Left: Femur Synthes I 04/07/2031 04.045.090S / / [id number] Synthes Nail Retrograde Fem 10mm 400mm 5 Deg Bend Titanium Sterile 04.233.040s - [id number] Implanted:Qty: 1 on 03/18/2022 by Emmanuelle Ba MD at [facility] Left: Femur [employer]ynthe[employer] I 10/05/2025 04.233.040S / / [id number] Screw Locking Im Nail 5mm 84mm - [id number] Implanted:Qty: 1 on 03/18/2022 by Emmanuelle Ba MD at [facility] Left: Femur Synthes I 04.045.084 / / Screw Locking Im Nail 5mm 36mm - [id number] Implanted:Qty: 2 on 03/18/2022 by Emmanuelle Ba MD at [facility] Left: Femur Synthes I 04.045.036 / / Explanted Type Area Property Insurance Agent Device Identifier Shelf Expiration Date Model / Serial / Lot Synthes Screw Locking Im Nail 5mm 80mm 04.045.080 - [id number] Explanted:Qty: 1 on 03/18/2022 by Emmanuelle Ba MD at [facility] Left: Femur Synthes I 04.045.0 80 / / Synthes Screw Locking Im Nail 5mm 88mm 04.045.088 - [id number] Implanted:Qty: 1 on 03/18/2022 by Emmanuelle Ba MD at [facility] Explanted:Qty: 1 on 05/18/2023 by Arsalan Machado MD Left: Femur Synthes I / / Synthes Screw Locking Im Nail 5mm 68mm - [id number] Implanted:Qty: 1 on 03/18/2022 by Emmanuelle Ba MD at [facility] Explanted:Qty: 1 on 05/18/2023 by Arsalan Machado MD Left: Femur Synthes I / / Procedures Procedure Name Priority Date/Time Associated Diagnosis Comments XR KNEE LEFT 4 OR MORE VIEWS Schedule Routine, Read Routine (OP Routine) 04/12/2025 4:50 PM CDT Painful total knee replacement, initial encounter NM BONE IMAGING 3 PHASE Schedule Routine, Read Routine (OP Routine) 04/12/2025 2:54 PM CDT Pain due to total left knee replacement, initial encounter Mechanical loosening of prosthetic knee, initial encounter COLONOSCOPY Routine 01/14/2016 from Last 3 Months or Most Recently Relevant to Health Maintenance Results * XR Knee Left 4 or More Views (04/12/2025 4:50 PM CDT) Anatomical Region Laterality Modality Lower Extremities, Knee Left Computed Radiography 04/15/2025 7:36 AM CDT Narrative 04/15/2025 7:37 AM CDT EXAM DESCRIPTION: 1. XR KNEE LEFT 4 OR MORE VIEWS REASON FOR STUDY: Knee pain, initial exam Knee replacement 2021, femur fx 2022, lateral pain x 2 weeks, no new injury FINDINGS: Four views submitted with comparison 01/10/2025. 2 component left knee arthroplasty is in near anatomic alignment. No acute fracture. Old healed nailed distal femur fracture noted. Patella inferiorly is present. Extensor mechanism heterotopic ossification noted. IMPRESSION: 1. 2 component left knee arthroplasty in near anatomic alignment. THIS IS AN ELECTRONICALLY VERIFIED FINAL REPORT 04/15/2025 7:37 AM - Electronically signed by Rhett Sousa M.D. MF: [email or web address] Report ID: [id number] Reading Location: [id number] Procedure Note Rhett Sousa MD - 04/15/2025 EXAM DESCRIPTION: 1. XR KNEE LEFT 4 OR MORE VIEWS REASON FOR STUDY: Knee pain, initial exam Knee replacement 2021, femur fx 2022, lateral pain x 2 weeks, no newinjury FINDINGS: Four views submitted with comparison 01/10/2025. 2 component left knee arthroplasty is in near anatomic alignment. Noacute fracture. Old healed nailed distal femur fracture noted. Patellainferiorly is present. Extensor mechanism heterotopic ossification noted. IMPRESSION: 1. 2 component left knee arthroplasty in near anatomic alignment. THIS IS AN ELECTRONICALLY VERIFIED FINAL REPORT 04/15/2025 7:37 AM - Electronically signed by Rhett Sousa M.D. MF: ROLAND Report ID: [id number] Reading Location: [id number] [place] Rhett Hunt CAFETERIA CASHIER IMG XR PROCEDURES Final Result * NM Bone Imaging 3 Phase (04/12/2025 2:54 PM CDT) Anatomical Region Laterality Modality N/A Nuclear Medicine 04/15/2025 8:10 AM CDT Narrative 04/15/2025 8:13 AM CDT EXAM DESCRIPTION: NM BONE IMAGING 3 PHASE REASON FOR STUDY: left knee to rule out aseptic loosening, left knee arthroplasty 3 years ago. RADIOPHARMACEUTICAL: 25.4 mCi Tc-99m MDP via a left antecubital IV site TECHNIQUE: Limited three phase scintigrams of the bilateral knee were obtained. COMPARISON: Prior Bone Scan: No prior bone scan. Prior Anatomic imaging: Left knee radiographs 01/10/2025 and 04/12/2025. FINDINGS: There is hyperemia of the left knee medial compartment. On the blood pool images there is moderate radiotracer uptake near the expected bone prosthesis interface medial left femur at the femoral condyle. Moderate radiotracer uptake at the bone prosthesis at the medial and lateral left femur bone prosthesis interface. Mild arthritic pattern of activity in the right knee medial compartment with joint space loss apparent. IMPRESSION: Three-phase positivity at the left femur bone prosthesis interface, this is nonspecific but in the given clinical context raises suspicion for arthroplasty loosening. THIS IS AN ELECTRONICALLY VERIFIED FINAL REPORT 04/15/2025 8:13 AM - Electronically signed by Sabas Crystal M.D. CH: Report ID: [id number] Reading Location: [id number] Procedure Note Sabas Crystal MD - 04/15/2025 EXAM DESCRIPTION: NM BONE IMAGING 3 PHASE REASON FOR STUDY: left knee to rule out aseptic loosening, left knee arthroplasty 3 years ago. RADIOPHARMACEUTICAL: 25.4 mCi Tc-99m MDP via a left antecubital IVsite TECHNIQUE: Limited three phase scintigrams of the bilateral knee were obtained. COMPARISON: Prior Bone Scan: No prior bone scan. Prior Anatomic imaging: Left knee radiographs 01/10/2025 and 04/12/2025. FINDINGS: There is hyperemia of the left knee medial compartment. On the bloodpool images there is moderate radiotracer uptake near the expected boneprosthesis interface medial left femur at the femoral condyle. Moderate radiotracer uptake at the bone prosthesis at the medial and lateral left femur bone prosthesis interface. Mild arthritic pattern of activity in the rightknee medial compartment with joint space loss apparent. IMPRESSION: Three-phase positivity at the left femur bone prosthesis interface, thisis nonspecific but in the given clinical context raises suspicion for arthroplasty loosening. THIS IS AN ELECTRONICALLY VERIFIED FINAL REPORT 04/15/2025 8:13 AM - Electronically signed by Sabas Crystal M.D. CH: Report ID: [id number] Reading Location: [id number] Marcelino Milan MD IMG NM PROCEDURES Final Result * Colonoscopy (01/14/2016) Anatomical Region Laterality Modality Other Historical Provider ENDOSCOPY PROCEDURES Marycruz l Result from Last 3 Months or Most Recently Relevant to Health Maintenance Insurance [facility] Advance Directives For more information, please contact: [phone] * Full Code (Latest Code Status on File) Date Activated Date Inactivated Comments 03/17/2022 7:38 PM 03/22/2022 8:13 PM Care Teams Forest Fire Officer Relationship Specialty Start Date End Date Emelina Bess NP [address] [place] [address] PCP - General Nurse Practitioner 01/10/25
--- OUTSIDE RECORDS SUMMARY | 2025-05-27 07:29 | XMS_ITS | Encounter Summary ---
Author Organization [facility] Healthcare Address [address] [place] [address] Care Team Providers Care Trolley Car Mechanic Name Role Phone Emelina Bess NP Primary Care Provider [phone] Encounter Details Date Type Department Care Team (Late st Contact Info) Description 04/30/2025 Orders Only [facility] Medical Group Orthopedics and Sports Medicine [address] [facility] [address] [place] [address] Marcelino Milan MD [address] [place] [address] [address] [place] [address] Social History Tobacco Use Types Packs/Day Years Used Date Smoking Tobacco: Never Smokeless Tobacco: Never Alcohol Use Standard Drinks/Week Comments No 0 [...] on file 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
[2025-05-27 19:34] LABS: CRP < 0.5 mg/dL (<1.0)
== END 2025-05-27 07:18 | disposition home or self-care (01) ==
PROVIDERS: PCP Nurse Practitioner Adult Health
DX: M25.562 Pain in left knee (principal); G89.29 Other chronic pain; Z96.652 Presence of left artificial knee joint
CPT/HCPCS: 36415; 85652; 86140

== ENCOUNTER 2025-07-29 08:31 | Outpatient (CLI) | payer OTHER, SELFPAY ==
--- OUTSIDE RECORDS SUMMARY | 2025-07-29 08:57 | XMS_ITS | Clinical Summary ---
Author Organization [facility] [employer] [place] Address [address] [place] [address] Care Team Providers Care Aluminum Sheet Cutter Name Role Phone Unavailable Primary Care Provider Unavailabl e Allergies No known active allergies Medications tamsulosin (FLOMAX) 0.4 mg capsule Take 1 Capsule (0.4 mg) by mouth daily. 90 Capsule 3 2 Active Additional Information Patient not taking.Reported on 02/18/2025 acetaminophen (TYLENOL) 500 mg Capsule Take 1,000 mg by mouth. 2 Active cholecalciferol, vitamin D3, 1,000 unit Take 1,000 Units by mouth. Active montelukast (SINGULAIR) 10 mg tablet Take 10 mg by mouth daily at bedtime. Active aspirin (ECOTRIN EC) 81 mg Tablet, Delayed Release (E.C.)Indication s:TIA (transient ischemic attack) Take 1 Tablet (81 mg) by mouth daily. 4 Active fluticasone propionate (FLONASE) 50 mcg/spray [place], Suspension nasal inhalerIndicatio ns:Non-seasonal allergic rhinitis, unspecified trigger Administer 2 Sprays in each nostril daily. 32 Gram 5 Active metFORMIN (GLUCOPHAGE XR) 500 mg Extended Release 24 hour tablet 5 Active diclofenac sodium (VOLTAREN) 75 mg Tablet, Delayed Release (E.C.) Take 75 mg by mouth 2 times daily. Active fexofenadine (BREANNE) 180 mg tabletIndication s:Non-seasonal allergic rhinitis, unspecified trigger Take 1 Tablet (180 mg) by mouth daily. For allergies 90 Tablet 5 Active lisinopriL (PRINIVIL) 20 mg tabletIndication s:HTN (hypertension), benign Take 1 Tablet (20 mg) by mouth daily. 90 Tablet 5 Active hydroCHLOROthiaz alex (MICROZIDE) 12.5 mg capsuleIndicatio ns:HTN (hypertension), benign Take 1 Capsule (12.5 mg) by mouth daily. 90 Capsule 5 Active Active Problems Problem Noted Date Diagnosed Date History of TIA (transient ischemic attack) and s troke 01/07/2025 Non-seasonal allergic rhinitis 01/07/2025 Low hemoglobin 06/14/2024 TIA (transient ischemic attack) 02/28/2024 Overview (04/05/2024): December 2023. Negative CT head. Pt did not complete MRI brain ordered. Prediabetes 01/09/2024 Chronic nonallergic rhinitis 07/05/2022 Closed fracture of femur 03/17/2022 Overview (04/28/2022): Added automatically from request for surgery [id number] Severe obesity (BMI 35.0-39.9) with comorbidity 02/29/2020 [...] Encounters Date Type Department Care Team Description 07/25/2025 [facility] [employer] [place] [address] [place] [address] Kelly Ruiz ANP Non-seasonal allergic rhinitis, unspecified trigger 06/25/2025 External Device Data ST[facility] ABSTRACTION Provider, Abstract 06/21/2025 [facility] [employer] [place] [address] [place] [address] Yesi Livingston MD HTN (hypertension), benign 05/28/2025 External Device Data STL ABSTRACTION Provider, Abstract 05/07/2025 1:00 PM CDT Procedure visit [facility] [employer] [place] [address] [place] [id number] Issue of repeat prescription (Primary Dx) 05/06/2025 [facility]ill [facility] [employer] [place] [address] [place] [address] Kelly Ruiz ANP Non-seasonal allergic rhinitis, unspecified trigger from Last 3 Months Immunizations Immunization Administration [...] Comments HEMOGLOBIN A1C Routine 08/18/2023 7:11 AM SHERIFF DETECTIVE Hypertension, unspecified type from Last 3 Months or Most Recently Relevant to Health Maintenance Results * (ABNORMAL) HEMOGLOBIN A1C (08/18/2023 7:11 AM SHERIFF DETECTIVE) HEMOGLOBIN A1C 6.2(H) <5.7 % of total Hgb [facility] Comment: For someone without known diabetes, [...] children. ESTIMATED AVERAGE GLUCOSE (MG/DL) 131 mg/dL [employer] ESTIMATED AVERAGE GLUCOSE (MMOL/L) 7.3 mmol/L [employer] [facility] Comment: HbA1c performed on nanoRETE platform. Test Performed at: [facility] [address] [place] [address] Lucinda Perez MD Blood 08/18/2023 7:11 AM SHERIFF DETECTIVE 08/19/2023 1:08 PM SHERIFF DETECTIVE us Beatriz Durant MD CHEMISTRY ORDERABLES Final Re sult [facility] [phone] [employer] [address] [place] [address] from Last 3 Months or Most Recently Relevant to Health Maintenance Insurance [employer] OPEN ACCESS
--- OUTSIDE RECORDS SUMMARY | 2025-07-29 08:57 | XMS_ITS | Encounter Summary ---
Author Organization [employer] [facility] Address [address] [place] [address] Care Team Providers Care Workforce Management Analyst Name Role Phone Unavailable Primary Care Provider Unavailabl e Reason for Visit * Reason Onset Date Comments Medication Refill 07/25/2025 Encounter Details Date Type Department Care Team (Late st Contact Info) Description 07/25/2025 Refill [facility] [employer] [place] [address] [place] [address] Kelly Ruiz ANP [address] [address] Non-seasonal allergic rhinitis, unspecified trigger Social History Tobacco Use Types Packs/Day Years [...] on file documented as of this encounter Miscellaneous Notes * Telephone Encounter - Miguel Casiano - 07/29/2025 8:48 AM CST Thanks for checking, would prefer to metal pickling equipment operator 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 YTICAL DATA SCIENTIST * Telephone Encounter - Kelly Ruiz ANP - 07/29/2025 7:11 AM CST Verify E prescription? YTICAL DATA SCIENTIST * Telephone Encounter - Miguel Casiano - 07/25/2025 3:40 PM CST Last refilled: 05/06/25 Quantity given: 90 Number of refills: 0 Last appointment: 02/18/25 Next appointment: None Scheduled Last Labs: 09/14/24 YTICAL DATA SCIENTIST documented in this encounter Plan of Treatment Not on file documented as of this encounter Visit Diagnoses Diagnosis Non-seasonal allergic rhinitis, unspecified trigger documented in this encounter
--- OUTSIDE RECORDS SUMMARY | 2025-07-29 08:57 | XMS_ITS | Encounter Summary ---
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
--- OUTSIDE RECORDS SUMMARY | 2025-07-29 08:57 | XMS_ITS | Clinical Summary ---
Author Organization [facility] Address [address] [place] [address] Care Team Providers Care Forestry Hunter Name Role Phone Emelina Bess NP Primary [...] each nostril daily 3 each 4 Active Additional Information Patient not taking.Reported on 06/03/2025 meclizine (ANTIVERT) 12.5 mg tabletIndication s:Dizziness Take 1 tablet (12.5 mg total) by mouth 3 (three) times a day as needed for dizziness 90 tablet 4 Active triamcinolone (KENALOG) 0.1 % creamIndications :Insect bite of left thigh, initial encounter Apply topically 3 (three) times a day for 10 days 80 g [address] (VOLTAREN) 75 mg EC tabletIndication s:It band syndrome, left,S/P total knee arthroplasty, left TAKE 1 TABLET (75 MG TOTAL) BY MOUTH TWO (2) (TWO) TIMES a DAY 60 tablet 5 Active metFORMIN (GLUCOPHAGE) 500 mg tablet Take 1 tablet (500 mg total) by mouth daily with breakfast Active meloxicam (MOBIC) 15 mg tabletIndication s:Osteoarthritis Take 1 tablet (15 mg total) by mouth daily 30 tablet 1 5 08/03/20 25 Active Active Problems Problem Noted Date Diagnosed Date Painful orthopaedic hardware 05/05/2023 Chronic nonallergic rhinitis 07/05/2022 COVID 03/17/2022 Closed fracture of femur 03/17/2022 Overview (03/17/2022): Added automatically from request for surgery [id number] Acute pain due to trauma 03/17/2022 Class [...] Encounters Date Type Department Care Team Description 06/27/2025 Orders Only [facility] Medicine Orthopaedic Surgery [address] [place] [address] Jaiden Tracey MD 06/04/2025 Orders Only [facility] Orthopaedic Surgery [address] [facility] [address] [place] [phone] Jaiden Tracey MD 06/03/2025 11:00 AM CDT Office Visit [facility] Medicine Orthopaedic Surgery [facility] [facility] [address] [place] [phone] Jaiden Tracey MD Iliotibial band syndrome affecting left lower leg (Primary Dx); Weakness of left quadriceps muscle; S/P total knee arthroplasty, left; Closed bicondylar fracture of distal femur, left, with routine healing, subsequent encounter 06/03/2025 10:30 AM CDT - 06/03/2025 11:59 PM CDT Hospital Encounter [id number] [address] [place] [address] [address] [place] [phone] Chronic pain of left knee; S/P total knee arthroplasty, left Discharge Disposition: Discharge to home or self care 06/03/2025 Orders Only [facility] Orthopaedic Surgery [facility] [address] [place] [phone] Jaiden Tracey MD It band syndrome, left (Primary Dx); Chronic pain of left knee 05/29/2025 Telephone [facility] Medicine Orthopaedic Surgery [facility] [address] [place] [phone] Jaiden Tracey MD Call Back 05/14/2025 Telephone [facility] Orthopaedic Surgery [address] [facility] 6th [place] [address] [place] [address] Arsalan Machado MD 05/10/2025 Orders Only [facility] Orthopaedic Surgery [address] [place] [address] [address] [place] [phone] Jaiden Tracey MD Chronic pain of left knee (Primary Dx); S/P total knee arthroplasty, left 05/07/2025 Telephone [facility] Orthopaedic Surgery [address] [facility] 6th [place] [address] [place] [address] Arsalan Machado MD 05/01/2025 Telephone [facility] Orthopedics and Sports Medicine [address] [address] [place] [address] Jenise Horowitz MA 05/01/2025 Orders Only [facility] Orthopedics and Sports Medicine [address] [place] [address] [address] [place] [address] Marcelino Milan MD S/P total knee arthroplasty, left (Primary Dx); Left knee pain, unspecified chronicity; Patellar tendinitis of left knee; Painful orthopaedic hardware 04/30/2025 11:00 AM CDT Office Visit [facility] Orthopedics and Sports Medicine [address] [place] [address] [address] [place] [address] Marcelino Milan MD Chronic pain of left knee (Primary Dx) 04/30/2025 Orders Only [facility] Orthopedics and Sports Medicine [address] [place] [address] [address] [place] [address] Marcelino Milan MD from Last 3 Months Immunizations Immunization [...] on file 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 Gender Identity Not on file Sexual Orientation Not on file Last Filed Vital Signs Vital Sign Reading Time Taken Comments Blood Pressure 126/74 04/30/2025 11:02 AM CDT Pulse 57 04/30/2025 11:02 AM CDT Temperature 36.6 C (97.8 F) 04/26/2024 6:14 PM CDT Respiratory Rate 18 04/26/2024 6:14 PM CDT Oxygen Saturation 97% 04/26/2024 6:14 PM CDT Inhaled Oxygen Concentration - - Weight 120.7 kg (266 lb 3.2 oz) 025 11:12 AM CDT Height 177.8 cm (5' 10) 06/03/2025 11: 12 AM CDT Body Mass Index 38.2 06/03/2025 11:12 AM CDT Plan of Treatment Health Maintenance [...] this topic Medical Devices Implanted Type Area Inspector 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 [employer] Device Identifier Shelf Expiration Date Model / Serial / Lot [employer] [id number] Attune Cruciate Retain Cementless Knee Left 7 Component Femoral - [id number] Implanted:Qty: 1 on 04/22/2021 by Osmel Ram MD at [facility] Left: Knee [employer] 08/07/2030 [id number] / / [id number] [employer] [id number] Attune Cementless Rotate Platform Knee 8 Baseplate Tibial - [id number] Implanted:Qty: 1 on 04/22/2021 by Osmel Ram MD at [facility] Left: Knee [employer] 08/07/2030 [id number] / / [id number] [employer] [id number] Attune 10mm Cruciate Retaining Rotate Platform Knee 7 Insert - [id number] Implanted:Qty: 1 on 04/22/2021 by Osmel Ram MD at [facility] Left: Knee [employer] 02/04/2025 [id number] / / [id number] Synthes Screw Locking Threaded 5.0x90mm 04.045.090s - [id number] Implanted:Qty: 1 on 03/18/2022 by Emmanuelle Ba MD at [facility] Left: Femur Synthes I 04/07/2031 04.045.090S / / [id number] Synthes Nail Retrograde Fem 10mm 400mm 5 Deg Bend Titanium Sterile 04.233.040s - [id number] Implanted:Qty: 1 on 03/18/2022 by Emmanuelle Ba MD at [facility] Left: Femur [employer]ynthe[employer] I 10/05/2025 04.233.040S / / [id number] Screw Locking Im Nail 5mm 84mm - [id number] Implanted:Qty: 1 on 03/18/2022 by Emmanuelle Ba MD at [facility] Left: Femur Synthes I 04.045.084 / / Screw Locking Im Nail 5mm 36mm - [id number] Implanted:Qty: 2 on 03/18/2022 by Emmanuelle Ba MD at [facility] Left: Femur Synthes I 04.045.036 / / Explanted Type Area Inspector 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 [employer] Device Identifier Shelf Expiration Date Model / Serial / Lot Synthes Screw Locking Im Nail 5mm 80mm 04.045.080 - [id number] Explanted:Qty: 1 on 03/18/2022 by Emmanuelle Ba MD at [facility] Left: Femur [employer]ynthes I 04.045.0 80 / / Synthes Screw Locking Im Nail 5mm 88mm 04.045.088 - [id number] Implanted:Qty: 1 on 03/18/2022 by Emmanuelle Ba MD at [facility] Explanted:Qty: 1 on 05/18/2023 by Arsalan Machado MD Left: Femur Synthes I 04.045.088 / / Synthes Screw Locking Im Nail 5mm 68mm 04.045.068 - [id number] Implanted:Qty: 1 on 03/18/2022 by Emmanuelle Ba MD at [facility] Explanted:Qty: 1 on 05/18/2023 by Arsalan Machado MD Left: Femur Synthes I 04.045.068 / / Procedures Procedure Name Priority Date/Time Associated Diagnosis Comments XR KNEE LEFT 4 OR MORE VIEWS Schedule Routine, Read Routine (OP Routine) 06/03/2025 11:03 AM CDT Chronic pain of left knee S/P total knee arthroplasty, left XR FEMUR LEFT 2 OR MORE VIEWS Schedule Routine, Read Routine (OP Routine) 06/03/2025 11:03 AM CDT Chronic pain of left knee S/P total knee arthroplasty, left CRP (ACUTE PHASE) Routine 05/28/2025 1:3 1 PM CDT Chronic pain of left knee S/P total knee arthroplasty, left COLONOSCOPY Routine 01/14/2016 from Last 3 Months or Most Recently Relevant to Health Maintenance Results * XR Femur Left 2 or More Views (06/03/2025 11:03 AM CDT) Anatomical Region Laterality Modality Lower Extremities, Thigh, Femur Left Computed Radiography 06/03/2025 11:2 1 AM CDT Impressions 06/03/2025 11:21 AM CDT 1. Unchanged left knee arthroplasty in near-anatomic alignment with healing reduced and nailed distal femur periprosthetic fracture Electronically signed by: David Childers MD Narrative 06/03/2025 11:21 AM CDT EXAMINATION: XR KNEE LEFT 4 OR MORE VIEWS, XR FEMUR LEFT 2 OR MORE VIEWS HISTORY: Left knee, leg pain. FINDINGS: Comparison to 04/12/2025. Unchanged healed reduced and nailed distal femur fracture transfixed by retrograde medullary nail with 2 proximal and distal interlocking screws. Hardware is intact. Unchanged 2 component knee arthroplasty in near-anatomic alignment. No periprosthetic fracture or component migration. Small knee effusion/hypertrophy. Heterotopic ossification along the quadriceps tendon. Heterotopic ossification anteriorly at the inferior pole of patella versus loose body. Mild to moderate left hip osteoarthritis. Procedure Note David Childers MD - 06/03/2025 EXAMINATION: XR KNEE LEFT 4 OR MORE VIEWS, XR FEMUR LEFT 2 OR MORE VIEWS HISTORY: Left knee, leg pain. FINDINGS: Comparison to 04/12/2025. Unchanged healed reduced and nailed distal femur fracture transfixed by retrograde medullary nail with 2 proximal and distal interlocking screws. Hardware is intact. Unchanged 2 component knee arthroplasty in near-anatomic alignment. No periprosthetic fracture or component migration. Small knee effusion/hypertrophy. Heterotopic ossification along the quadriceps tendon. Heterotopic ossification anteriorly at the inferior pole of patella versus loose body. Mild to moderate left hip osteoarthritis. IMPRESSION: 1. Unchanged left knee arthroplasty in near-anatomic alignment with healing reduced and nailed distal femur periprosthetic fracture Electronically signed by: David Childers MD Jaiden Tracey MD IM XR PROCEDURES Final Result * XR Knee Left 4 or More Views (06/03/2025 11:03 AM CDT) Anatomical Region Laterality Modality Lower Extremities, Knee Left Computed Radiography 06/03/2025 11:2 1 AM CDT Impressions 06/03/2025 11:21 AM CDT 1. Unchanged left knee arthroplasty in near-anatomic alignment with healing reduced and nailed distal femur periprosthetic fracture Electronically signed by: David Childers MD Narrative 06/03/2025 11:21 AM CDT EXAMINATION: XR KNEE LEFT 4 OR MORE VIEWS, XR FEMUR LEFT 2 OR MORE VIEWS HISTORY: Left knee, leg pain. FINDINGS: Comparison to 04/12/2025. Unchanged healed reduced and nailed distal femur fracture transfixed by retrograde medullary nail with 2 proximal and distal interlocking screws. Hardware is intact. Unchanged 2 component knee arthroplasty in near-anatomic alignment. No periprosthetic fracture or component migration. Small knee effusion/hypertrophy. Heterotopic ossification along the quadriceps tendon. Heterotopic ossification anteriorly at the inferior pole of patella versus loose body. Mild to moderate left hip osteoarthritis. Procedure Note David Childers MD - 06/03/2025 EXAMINATION: XR KNEE LEFT 4 OR MORE VIEWS, XR FEMUR LEFT 2 OR MORE VIEWS HISTORY: Left knee, leg pain. FINDINGS: Comparison to 04/12/2025. Unchanged healed reduced and nailed distal femur fracture transfixed by retrograde medullary nail with 2 proximal and distal interlocking screws. Hardware is intact. Unchanged 2 component knee arthroplasty in near-anatomic alignment. No periprosthetic fracture or component migration. Small knee effusion/hypertrophy. Heterotopic ossification along the quadriceps tendon. Heterotopic ossification anteriorly at the inferior pole of patella versus loose body. Mild to moderate left hip osteoarthritis. IMPRESSION: 1. Unchanged left knee arthroplasty in near-anatomic alignment with healing reduced and nailed distal femur periprosthetic fracture Electronically signed by: David Childers MD us Jaiden Tracey MD IMG XR PROCEDURES Final Result * CRP (acute phase) (05/28/2025 1:31 PM CDT) Blood us Jaiden Tracey MD LAB BLOOD ORDERABLES Final Resu lt EXTERNAL LAB * Colonoscopy (01/14/2016) Anatomical Region Laterality Modality Other us Historical Provider ENDOSCOPY PROCEDURES Marycruz l Result from Last 3 Months or Most Recently Relevant to Health Maintenance Insurance [facility] [employer] Member Subscriber Plan / Payer (Ef fective 2022-Present) Name:Lev Ford Member ID:Not on file Relation to Subscriber:Employee Name:[employer] Subscriber ID:Not on file (Home) Address: [place] [address] Payer ID:[id number] Group ID:Not on file Type:WORKERS COMPENSATION Address: [facility] [address] [place] [address] Advance Directives For more information, please contact: [phone] * Full Code (Latest Code Status on File) Date Activated Date Inactivated Comments 03/17/2022 7:38 PM 03/22/2022 8:13 PM Care Teams Forestry Hunter Relationship Specialty Start Date End Date Emelina Bess NP [address] [place] [address] PCP - General Nurse Practitioner 01/10/25
[2025-07-29 19:00] LABS: Alanine Aminotransferase 38 U/L (6-50); Albumin Level 4.2 g/dL (3.5-5.1); Alkaline Phosphatase 74 U/L (38-126); Anion Gap 7 mmol/L (4-12); Aspartate Amino Transferase 51 U/L (17-59); Bilirubin,Total 0.4 mg/dL (0.2-1.3); Blood Urea Nitrogen 24 mg/dL (9-20); Calcium 9.7 mg/dL (8.4-10.2); Carbon Dioxide 26 mmol/L (22-30); Chloride 105 mmol/L (98-107); Estimated Glomerular Filt Rate > 60; Glucose 106 mg/dL (65-110); Potassium 4.9 mmol/L (3.4-5.0); Sodium 138 mmol/L (137-145); Total Protein 7.7 g/dL (6.3-8.2)
[2025-07-29 19:12] LABS: Hemoglobin A1C 6.2 % (<5.7)
== END 2025-07-29 08:32 | disposition home or self-care (01) ==
PROVIDERS: PCP Nurse Practitioner Adult Health; Visit Provider Nurse Practitioner Adult Health
DX: R73.03 Prediabetes (principal)
CPT/HCPCS: 36415; 80053; 83036